=== PATIENT | male | born 1995 | race Caucasian/White ===

== ENCOUNTER 2022-10-10 10:44 | Emergency (ER) | payer OTHER, SELFPAY ==
--- NOTE | ~2022-10-10 | US_ITS ---
EXAMINATION: US ABDOMEN LIMITED CLINICAL INFORMATION: Right upper quadrant pain. COMPARISON: None TECHNIQUE: Real-time imaging of the right upper quadrant abdominal viscera. FINDINGS: PANCREAS: Pancreatic body and tail normal. Head obscured by bowel gas. LIVER: Liver is slightly echogenic but no focal masses or intrahepatic biliary dilatation. Liver size normal. GALLBLADDER: The gallbladder is slightly thick walled, there is a tiny 2 mm polyp present. No discrete mobile gallstones are pericholecystic fluid. COMMON BILE DUCT: Normal in caliber measuring 0.6 cm in diameter. RIGHT KIDNEY: Normal. No hydronephrosis. No renal calculi or focal parenchymal lesions. The kidney measures 10.0 cm in maximum dimension. FREE FLUID: None. US/US abdomen limited IMPRESSION: Echogenic liver. Tiny gallbladder polyp. No evidence for gallstones or sonographic evidence for cholecystitis.
--- NOTE | 2022-10-10 11:27 | ED.ABDPAIN ---
HPI - Abdominal Pain General Chief Complaint: Abdominal Pain <Tonia Vides MD - Last Filed: 10/10/22 11:30> Stated Complaint: Stomach Pain <Tonia Vides MD - Last Filed: 10/10/22 11:30> Time Seen by Provider: 10/10/22 14:43 <Tonia Vides MD - Last Filed: 10/10/22 11:30> Source: patient <RUTH ANN Carrero - Last Filed: 10/10/22 15:29> Mode of arrival: ambulatory <RUTH ANN Carrero - Last Filed: 10/10/22 15:29> Limitations: no limitations <RUTH ANN Carrero Last Filed: 10/10/22 15:29> History of Present Illness HPI narrative: 27 yo male presents to the ER with Epigastric and right upper quadrant pain for last 5 days. He reports the pain started after eating cheese. He is lactose intolerant. He usually doesn't eat dairy. he states that the pain has been constant is located in the epigastric area. He has had some nausea but no vomiting. He is stooling and urinating normally. He reports the pain is like an ache, sometimes radiates to the right upper quadrant. He does not notice any worsening with food intake. He likes to eat spicy foods. He denies any fever or chills. <RUTH ANN Carrero - Last Filed: 10/10/22 15:29> MD elicited complaint: abdominal pain <RUTH ANN Carrero Last Filed: 10/10/22 15:29> Pertinent past history: none <RUTH ANN Carrero Last Filed: 10/10/22 15:29> Onset (ago): day(s) (5) <RUTH ANN Carrero Last Filed: 10/10/22 15:29> Pain Consistency: constant <RUTH ANN Carrero Last Filed: 10/10/22 15:29> Location: epigastric <RUTH ANN Carrero Last Filed: 10/10/22 15:29> Severity: moderate <RUTH ANN Carrero Last Filed: 10/10/22 15:29> Quality: aching <RUTH ANN Carrero Last Filed: 10/10/22 15:29> Radiation: RUQ <RUTH ANN Carrero - Last Filed: 10/10/22 15:29> Migration to: no migration <RUTH ANN Carrero - Last Filed: 10/10/22 15:29> Exacerbating factors: nothing <RUTH ANN Carrero - Last Filed: 10/10/22 15:29> Relieving factors: nothing <RUTH ANN Carrero - Last Filed: 10/10/22 15:29> Associated symptoms: nausea <RUTH ANN Carrero - Last Filed: 10/10/22 15:29> Related Data Home Medications: Previous Rx's Medication Instructions Recorded ondansetron 4 mg disintegrating 4 mg PO Q8H PRN nausea and 10/10/22 tablet vomiting #10 tabs pantoprazole 40 mg tablet,delayed 40 mg PO DAILY #30 tabs 10/10/22 release (Protonix) <Tonia Vides MD - Last Filed: 10/10/22 11:30> Allergies/Adverse Reactions: Allergies Allergy/AdvReac Type Severity Reaction Status Date / Time No Known Allergies Allergy Unverified 07/21/20 16:39 <Tonia Vides MD - Last Filed: 10/10/22 11:30> Review of Systems Review of Systems Constitutional: No Fever, No Chills ENT/Mouth: No sore throat, No Rhinorrhea, No Swallowing Difficulty Cardiovascular: No Chest Pain, No SOB Respiratory: No Cough, No Sputum, No Wheezing, No dyspnea Gastrointestinal: + Nausea, No Vomiting, No Diarrhea, +abdominal Pain, No Hematochezia, No Melena Genitourinary: No Dysuria, No Urinary Frequency, No Hematuria Musculoskeletal: No joint pain, No Myalgias Skin: No Skin Lesions, No rash Neuro: No Weakness, No Dizziness, No Headache Psych: No Anxiety/Panic, No Depression Heme/Lymph: No Bruising, No Lymphadenopathy <RUTH ANN Carrero - Last Filed: 10/10/22 15:29> [facility] Social History Social History: Social History Advance Directives: No Advance Directives Information Provided: No <Tonia Vides MD - Last Filed: 10/10/22 11:30> Physical Exam ED Vital Signs: Vital Signs - 24 hr 12/07/22 11:29 Temperature 98.3 F Pulse Rate 94 Respiratory Rate 18 Blood Pressure 144/84 H Pulse Oximetry 97 Oxygen Delivery Method Room Air BMI result Body Mass Index 31.6 <Tonia Vides MD - Last Filed: 10/10/22 11:30> Vital Signs - 24 hr 10/10/22 11:29 Temperature 98.3 F Pulse Rate 94 Respiratory Rate 18 Blood Pressure 144/84 H Pulse Oximetry 97 Oxygen Delivery Method Room Air BMI result Body Mass Index 31.6 <RUTH ANN Carrero - Last Filed: 10/10/22 15:29> Appearance: Alert. Oriented X3. No acute distress. Eyes: Pupils equal, round and reactive to light. ENT: Pharynx normal. Neck: Normal inspection. Neck supple. CVS: Normal heart rate and rhythm. Pulses normal. Respiratory: No respiratory distress. Breath sounds normal. Abdomen: Soft with epigastric tenderness, minimal RUQ tenderness without rebound or guarding +BS x4 Skin: Skin warm and dry. Normal skin color. Normal skin turgor. No rashes. Extremities: No lower extremity edema. Neuro: Oriented X 3. Grossly normal, nonfocal <RUTH ANN Carrero - Last Filed: 10/10/22 15:29> Course Course Course Narrative: RME evaluated patient as part of advanced triage epigastric pain ongoing for about a week. Positive nausea no vomiting. No diarrhea. Not affected by position not affected by food. Patient from home. 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 No coughing or congestion or upper respiratory symptoms. No diaphoresis. Not on any medication. No NSAID use. Labs ordered. Ultrasound of the right upper quadrant ordered. On exam patient's abdominal pain is mostly in the epigastric right upper quadrant. No right lower quadrant pain elicited on palpation. <Tonia Vides MD - Last Filed: 10/10/22 11:30> Reevaluation(s) Reevaluation #1: 27 yo male presenting with epigastric/RUQ pain x5 days. Exam with mild epigastric and RUQ tenderness. Abd soft. VSS and labs are unremarkable. US showing no gallstones or cholecystitis. Most likely gastritis. Will treat w/ PPI and dietary modifications. Will refer to GI if symptoms persist. Stable for d/c home. Patient agrees with plan. <RUTH ANN Carrero - Last Filed: 10/10/22 15:29> Medications Administered Discontinued Medications Generic Name Dose Route Start Last Admin Trade Name Freq PRN Reason Stop Dose Admin Al Hydroxide/Mg Hydroxide 30 ml 10/10/22 11:26 10/10/22 14:46 Magnesium Hydrox/Alum Hydrox 30 Ml Oral.Susp PO 10/10/22 11:27 30 ml ONCE ONE Administration Ondansetron HCl 4 mg 10/10/22 11:26 10/10/22 14:46 Ondansetron Odt 4 Mg Tab.Rapdis TRANSLINGU 10/10/22 11:27 4 mg ONCE ONE Administration <Tonia Vides MD - Last Filed: 10/10/22 11:30> Medications Administered Discontinued Medications Generic Name Dose Route Start Last Admin Trade Name Freq PRN Reason Stop Dose Admin Al Hydroxide/Mg Hydroxide 30 ml 10/10/22 11:26 10/10/22 14:46 Magnesium Hydrox/Alum Hydrox 30 Ml Oral.Susp PO 10/10/22 11:27 30 ml ONCE ONE Administration Ondansetron HCl 4 mg 10/10/22 11:26 10/10/22 14:46 Ondansetron Odt 4 Mg Tab.Rapdis TRANSLINGU 10/10/22 11:27 4 mg ONCE ONE Administration <RUTH ANN Carrero - Last Filed: 10/10/22 15:29> Discharge Plan Discharge Clinical Impression: Gastritis <Tonia Vides MD - Last Filed: 10/10/22 11:30> Patient Disposition: Home, Self-Care <Tonia Vides MD - Last Filed: 10/10/22 11:30> Instructions: Gastritis (ED), Diet for Stomach Ulcers and Gastritis (ED) <Tonia Vides MD - Last Filed: 10/10/22 11:30> Additional Instructions: Your lab workup today was unremarkable. Your ultrasound did not show any gallstones or gallbladder infection. Your pain is most likely due to gastritis which is and irritation and inflammation of your stomach lining. Start taking the prescribed medication as directed for this. Stick to a bland diet. Avoid foods high in acid, avoid alcohol and NSAID medications like Aleve, Motrin, Advil or ibuprofen. Follow up with your doctor as needed. Follow up with GI doctor if you symptoms persist despite dietary modifications and medication. If you develop new or worsening symptoms call 911 or come back to the ER for further evaluation. <Tonia Vides MD - Last Filed: 10/10/22 11:30> Prescriptions: New pantoprazole [Protonix] 40 mg tablet,delayed release (DR/EC) 40 mg PO DAILY Qty: 30 0RF ondansetron 4 mg tablet,disintegrating 4 mg PO Q8H PRN (Reason: nausea and vomiting) Qty: 10 0RF <Tonia Vides MD - Last Filed: 10/10/22 11:30> Referrals: [facility] [Provider Group] <Tonia Vides MD - Last Filed: 10/10/22 11:30> Stand Alone Forms: Work/School Release <Tonia Vides MD - Last Filed: 10/10/22 11:30> Discharge Date/Time: 10/10/22 15:26 <Tonia Vidse MD - Last Filed: 10/10/22 11:30>
[2022-10-10 11:29] VITALS: BP 144/84; PULSE 94; RESP 18; TEMP 36.8; O2SAT 97; BMI 31.6
[2022-10-10 11:39] LABS: MANUAL DIFF FLAG NO
[2022-10-10 11:42] LABS: Basophils Percent Auto 0.5 % (0-2); Eosinophils Absolute Auto 0.1 X10*3/uL (0.0-0.4); Eosinophils Percent Auto 1.6 % (0-4); Hematocrit 45.1 % (42.0-52.0); Hemoglobin 15.7 g/dl (14.0-18.0); Imm Gran Abs Auto 0.01 X10*3/uL (0.00-0.03); Imm Gran Pct Auto 0.1 % (0.0-0.4); Lymphocytes Absolute Auto 3.1 X10*3/uL (1.2-4.9); Lymphocytes Percent Auto 35.9 % (20-40); Mean Corpuscular HGB Conc 34.8 g/dl (31.0-36.0); Mean Corpuscular Hemoglobin 28.8 pg (27.0-33.0); Mean Corpuscular Volume 82.8 fL (80.0-98.0); Mean Platelet Volume 10.7 fL (9.4-12.4); Monocytes Absolute Auto 0.7 X10*3/uL (0.1-1.2); Monocytes Percent Auto 7.9 % (2-11); Neutrophils Absolute Auto 4.7 x10*3/uL (2.0-8.3); Platelet Count 295 X10*3/uL (160-400); Red Blood Count 5.45 X10*6/uL (4.60-5.80); Red Cell Distribution Width 12.3 % (11.0-16.0); White Blood Count 8.7 X10*3/uL (4.8-10.8)
[2022-10-10 11:57] LABS: Lipase 25 U/L (8-78)
[2022-10-10 12:00] LABS: Alanine Aminotransferase 22 U/L (0-40); Albumin Level 4.6 g/dL (3.5-5.0); Alkaline Phosphatase 62 U/L (39-117); Anion Gap 10 (12-20); Aspartate Amino Transferase 19 U/L (5-37); Bilirubin Total 0.5 mg/dL (0.0-1.0); Blood Urea Nitrogen 10 mg/dL (9-16); Calcium 9.9 mg/dL (8.4-10.2); Carbon Dioxide 27 mmol/L (22-29); Chloride 108 mmol/L (96-108); Estimated Glomerular Filt Rate > 60; Glucose Random 106 mg/dL (60-115); Magnesium 2.1 mg/dL (1.6-2.6); Potassium 4.4 mmol/L (3.3-5.1); Sodium 141 mmol/L (135-145); Total Protein 7.5 g/dL (6.5-8.0)
[2022-10-10 12:30] LABS: Influenza A PCR NEGATIVE (Negative); Influenza B PCR NEGATIVE (Negative); Resp Syncy Virus RNA Qual PCR NEGATIVE (Negative); SARS COV2 PCR INHOUSE NEGATIVE (Negative)
[2022-10-10 14:28] LABS: Appearance Urine Clear; Color Urine Yellow; Glucose Urine UA Negative (Negative); Leukocyte Esterase Urine Negative (Negative); Nitrite Urine Negative (Negative); PH 7.5 (5.0-9.0); Urine Blood Negative (Negative); Urine Ketones Negative (Negative); Urine Protein Negative (Neg-Trace)
[2022-10-10] MEDS: Magnesium Hydrox/Alum Hydrox 30 ML ORAL.SUSP PO (14:46)
[2022-10-10] MEDS: Ondansetron ODT 4 MG TAB.RAPDIS TRANSLINGU (14:46)
== END 2022-10-10 15:26 | disposition home or self-care (01) ==
PROVIDERS: Physician Assistant Medical; Emergency Provider Emergency Medicine Emergency Medical Services
DX: K29.70 Gastritis, unspecified, without bleeding (principal); R10.31 Right lower quadrant pain; Z79.899 Other long term (current) drug therapy; Z20.822 Contact with and (suspected) exposure to COVID-19
CPT/HCPCS: 0241U; 36415; 76705; 80053; 81003; 83690; 83735; 85025; 99283; 99284

== ENCOUNTER 2022-10-13 05:02 | Emergency (ER) | payer OTHER, SELFPAY ==
--- NOTE | ~2022-10-13 | CT_ITS ---
EXAMINATION: CT ABDOMEN AND PELVIS WITH CONTRAST CLINICAL INFORMATION: Right lower quadrant pain COMPARISON: Previous limited abdominal ultrasound 10/10/2022 TECHNIQUE: Multidetector volumetric images were obtained from the superior aspect of the liver through the pubic symphysis following administration 85 mL of Omnipaque 350 intravenous contrast. Sagittal and coronal reformatted images were obtained on the technologist's workstation. Oral contrast: Yes This CT examination was performed using dose optimization techniques as appropriate, variously including the following: *Automated exposure control *Adjustment of mA and/or kV according to patient size (this includes techniques or standardized protocols for targeted exams where dose is matched to indication/reason for exam; i.e. extremities or head) *Use of iterative reconstruction technique DLP: 641 mGy-cm FINDINGS: LUNG BASES: The visualized lung bases are unremarkable. LIVER, GALLBLADDER, AND BILIARY TREE: The liver is normal in size, shape, and attenuation. No focal hepatic lesion or biliary ductal dilatation is present. The gallbladder is unremarkable with no evidence of radiopaque gallstones, gallbladder wall thickening, or obvious pericholecystic inflammatory changes. PANCREAS: Unremarkable. SPLEEN: Unremarkable. ADRENAL GLANDS: Unremarkable. KIDNEYS AND URETERS: The kidneys are normal in size, shape, and attenuation. There are small bilateral renal stones measuring 2 mm in the right. Pole and 3 mm in the left lower pole. No hydronephrosis, hydroureter. BLADDER: Unremarkable. GASTROINTESTINAL TRACT: Stool throughout the colon questionable for constipation. The small and large bowel are otherwise unremarkable. The appendix is unremarkable. ABDOMINAL WALL: No significant hernia is appreciated. LYMPH NODES: Normal. VASCULAR: Unremarkable. PELVIC VISCERA: Unremarkable. OSSEOUS STRUCTURES: Unremarkable. CT/CT abdomen pelvis w IV con IMPRESSION: Small bilateral renal stones. Question mild constipation. Fleischner guidelines were followed.
[2022-10-13 05:07] VITALS: BP 146/83; PULSE 72; RESP 18; TEMP 36.4; O2SAT 100; BMI 31.6
--- NOTE | 2022-10-13 05:11 | ED.ABDPAIN ---
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 He notes since then he has had R sided abdominal pain. He denies v/d. He has had decreased appetite. He was seen on 10/10 normal labs and US of RUQ. Tonight at work he is very uncomfortable and the pain is more in RLQ. He has not had abdominal surgery before. MD elicited complaint: abdominal pain Pertinent past history: none Onset (ago): week(s) (1) Pain Consistency: constant Location: RLQ and R flank Severity: moderate Quality: stabbing Radiation: none Migration to: no migration Exacerbating factors: eating and movement Relieving factors: nothing Associated symptoms: nausea Related Data Previous Rx's Medication Instructions Recorded ondansetron 4 mg disintegrating 4 mg PO Q8H PRN nausea and 10/10/22 tablet vomiting #10 tabs pantoprazole 40 mg tablet,delayed 40 mg PO DAILY #30 tabs 10/10/22 release (Protonix) Allergies Allergy/AdvReac Type Severity Reaction Status Date / Time No Known Allergies Allergy Verified 10/13/22 05:11 Review of Systems Review of Systems Constitutional : No Weight loss, No Fever, No Chills ENT/Mouth : No sore throat, No Rhinorrhea Eyes: No Swelling, No Redness Cardiovascular : No Chest Pain, No SOB, NoEdema Respiratory : No Cough, No Sputum, No Wheezing Gastrointestinal : Positive Nausea, no Vomiting, no Diarrhea, positive abdominal Pain, No Hematochezia, No Melena Genitourinary : No Dysuria, No Urinary Frequency, No Hematuria, No Urgency Musculoskeletal : No joint pain, No Myalgias, No Joint Swelling Skin : No Skin Lesions, No rash Neuro : No Weakness, No Numbness, No Dizziness, No Headache Psych : No Anxiety/Panic, No Depression Heme/Lymph: No Bruising, No Lymphadenopathy Endocrine : No Polyuria, No Polydipsia All other systems reviewed and are negative. [facility] Past Medical History Attestation statement: The following information was validated with the patient. Medical History Lactose intolerance Social History Social History (Updated 10/13/22 @ 05:14 by Azalia Appiah DO) Patient Tobacco Use Status: Never used Tobacco Advance Directives: No Advance Directives Information Provided: No Physical Exam ED Vital Signs: Vital Signs - 24 hr 10/13/22 05:07 Temperature 97.6 F Pulse Rate 72 Respiratory Rate 18 Blood Pressure 146/83 H Pulse Oximetry 100 Oxygen Delivery Method Room Air BMI result Body Mass Index 31.6 Appearance: Alert. Oriented X3. No acute distress. Eyes: Pupils equal, round and reactive to light. ENT: Pharynx normal. Neck: Normal inspection. Neck supple. CVS: Normal heart rate and rhythm. Pulses normal. Respiratory: No respiratory distress. Breath sounds normal. Abdomen: Soft and moderate RLQ ttp no rebound or guarding Skin: Skin warm and dry. Normal skin color. Normal skin turgor. Extremities: No lower extremity edema. No calf ttp Neuro: Oriented X 3. No motor deficit. No sensory deficit. Course Course Course Narrative: signed out to Dr. Walls pending CT scan Medical Decision Making Medical Decision Making MDM Narrative: 27 yo male lactose intolerant here with abdominal pain seen recently with negative labs and US of RUQ but today his pain is more localized to RLQ he does not have peritoneal signs on exam. Will need labs, IVF and CT Scan to evaluate RLQ for appendicitis - dispo per results and findings. Differential Diagnoses: Differential diagnosis (appendicitis, gastritis, IBS, constipation, renal colic) Lab Attestation: I reviewed the patient's lab results. Medications Administered Discontinued Medications Generic Name Dose Route Start Last Admin Trade Name Freq PRN Reason Stop Dose Admin Lactated Ringer's 1,000 mls @ 999 mls/hr 10/13/22 05:15 10/13/22 05:23 Lr IV 10/13/22 06:15 999 mls/hr .Q1H1M YAHAIRA Administration Ketorolac Tromethamine 15 mg 10/13/22 05:17 10/13/22 05:26 Ketorolac Tromethamine 15 Mg/Ml Vial IVPUSH 10/13/22 05:18 15 mg ONCE ONE Administration Discharge Plan Discharge Clinical Impression: Abdominal pain Qualifiers: Abdominal location: right lower quadrant Qualified Code(s): R10.31 - Right lower quadrant pain Patient Disposition: Still a Patient Prescriptions: No Action pantoprazole [Protonix] 40 mg tablet,delayed release (DR/EC) 40 mg PO DAILY Qty: 30 0RF ondansetron 4 mg tablet,disintegrating 4 mg PO Q8H PRN (Reason: nausea and vomiting) Qty: 10 0RF
[2022-10-13] MEDS: Lactated Ringers 1,000 ML 999 ML IV (05:23)
[2022-10-13] MEDS: Ketorolac Tromethamine 15 MG/ML VIAL IVPUSH (05:26)
[2022-10-13 05:31] LABS: Basophils Percent Auto 0.4 % (0-2); Eosinophils Absolute Auto 0.1 X10*3/uL (0.0-0.4); Eosinophils Percent Auto 1.5 % (0-4); Hemoglobin 15.9 g/dl (14.0-18.0); Imm Gran Abs Auto 0.02 X10*3/uL (0.00-0.03); Imm Gran Pct Auto 0.2 % (0.0-0.4); Lymphocytes Absolute Auto 3.4 X10*3/uL (1.2-4.9); Lymphocytes Percent Auto 42.5 % (20-40); MANUAL DIFF FLAG NO; Mean Corpuscular HGB Conc 36.1 g/dl (31.0-36.0); Mean Corpuscular Hemoglobin 29.8 pg (27.0-33.0); Mean Corpuscular Volume 82.6 fL (80.0-98.0); Mean Platelet Volume 10.6 fL (9.4-12.4); Monocytes Absolute Auto 0.5 X10*3/uL (0.1-1.2); Monocytes Percent Auto 6.6 % (2-11); Neutrophils Percent Auto 48.8 % (45-73); Platelet Count 281 X10*3/uL (160-400); Red Blood Count 5.33 X10*6/uL (4.60-5.80); Red Cell Distribution Width 12.3 % (11.0-16.0); White Blood Count 8.1 X10*3/uL (4.8-10.8)
[2022-10-13 06:00] VITALS: BP 137/75; PULSE 72; TEMP 36.6; O2SAT 97
[2022-10-13 06:01] LABS: Alanine Aminotransferase 23 U/L (0-40); Albumin Level 4.7 g/dL (3.5-5.0); Alkaline Phosphatase 52 U/L (39-117); Anion Gap 16 (12-20); Aspartate Amino Transferase 23 U/L (5-37); Bilirubin Direct 0.2 mg/dL (0.0-0.5); Bilirubin Total 0.6 mg/dL (0.0-1.0); Blood Urea Nitrogen 10 mg/dL (9-16); Carbon Dioxide 26 mmol/L (22-29); Chloride 105 mmol/L (96-108); Creatinine Clr Calc Pharmacy 102.7; Estimated Glomerular Filt Rate > 60; Glucose Random 105 mg/dL (60-115); Lipase 29 U/L (8-78); Magnesium 2.1 mg/dL (1.6-2.6); Potassium 4.5 mmol/L (3.3-5.1); Sodium 142 mmol/L (135-145); Total Protein 7.7 g/dL (6.5-8.0)
[2022-10-13] MEDS: iohexoL 350 MG/ML 100 ML INFUS..BTL 85 ML IV (06:36)
[2022-10-13] MEDS: Morphine Sulfate 4 MG/ML CARTRIDGE IVPUSH (06:47)
[2022-10-13] MEDS: ondansetron HCL 4 MG/2 ML VIAL IVPUSH (06:47)
[2022-10-13 07:38] VITALS: BP 123/70; PULSE 68; RESP 12; TEMP 36.4
== END 2022-10-13 08:24 | disposition home or self-care (01) ==
PROVIDERS: Emergency Medicine; Emergency Provider Emergency Medicine
DX: R10.31 Right lower quadrant pain (principal); E73.9 Lactose intolerance, unspecified
CPT/HCPCS: 36415; 74177; 80048; 80076; 83690; 83735; 85025; 96361; 96374; 96375; 99284; 99285; J1885; J2270; J2405; Q9967

== ENCOUNTER → 2022-11-02 12:09 | Outpatient (BNVA) | payer OTHER, SELFPAY | PROVIDERS: Visit Provider Nurse Practitioner | DX: K52.9 Noninfective gastroenteritis and colitis, unspecified (principal); R11.2 Nausea with vomiting, unspecified | CPT/HCPCS: 99202 ==

== ENCOUNTER → 2022-12-06 08:24 | Outpatient (BNVA) | payer OTHER, SELFPAY | PROVIDERS: Visit Provider Nurse Practitioner | DX: K52.9 Noninfective gastroenteritis and colitis, unspecified (principal); R11.2 Nausea with vomiting, unspecified | CPT/HCPCS: 99212 ==

== ENCOUNTER 2023-01-19 14:49 | Emergency (ER) | payer OTHER, SELFPAY ==
--- NOTE | 2023-01-19 | ECG_ITS ---
Test Reason : sob Blood Pressure : / mmHG Vent. Rate : 157 BPM Atrial Rate : 157 BPM P-R Int : 086 ms QRS Dur : 094 ms QT Int : 266 ms P-R-T Axes : 028 117 -15 degrees QTc Int : 430 ms Sinus tachycardia with short [place] Right axis deviation T wave abnormality, consider inferior ischemia Abnormal ECG No previous ECGs available Referred By: Generic ED Physician Electronically Signed By:Rocco Potts
--- NOTE | ~2023-01-19 | XR_ITS ---
EXAMINATION: XR ANKLE, RIGHT CLINICAL INFORMATION: Right ankle pain. COMPARISON: None available. TECHNIQUE: AP, lateral, and mortise views of the right ankle. An indicator arrow points to the lateral malleolus. FINDINGS: The bones and soft tissues are normal. No fracture. Alignment is anatomic. Joint spaces are maintained. Mild soft tissue swelling is seen laterally. XR/XR ankle RT 2V IMPRESSION: Mild soft tissue swelling laterally without acute underlying osseous abnormality.
[2023-01-19 14:57] VITALS: BP 154/91; PULSE 144; RESP 23; TEMP 37.1; O2SAT 99; BMI 30.7
--- NOTE | 2023-01-19 14:57 | ED_ITS ---
HPI - General Adult General Chief complaint: Dyspnea Stated complaint: Asthma, unable to breathe Time Seen by Provider: 01/19/23 14:57 Source: patient Mode of arrival: ambulatory Limitations: no limitations History of Present Illness HPI narrative: Patient is a 27 year old assigned male at with no reported medical history presenting to the emergency department today with an episode of shortness of breath. 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 Patient states that he became short of breath and twisted his right ankle. Patient denies any loss of consciousness or head injury. Patient denies any dizziness, lightheadedness, abdominal pain, nausea, vomiting, fever, chills, blurry vision, double vision, loss of vision, chest pain, back pain, night sweats, pain with urination, increased urinary frequency, increased urinary urgency, blood in his urine or stool, syncope or a near syncopal episode, bowel incontinence, bladder incontinence, bowel retention, bladder retention, or any other complaints at this time. Onset (ago): minute(s) Severity: mild Severity scale (1-10): 2 Relieving factors: none Exacerbating factors: none Associated symptoms: denies other symptoms Treatments prior to arrival: none Related Data Previous Rx's Medication Instructions Recorded ondansetron 4 mg disintegrating 4 mg PO Q8H PRN nausea and 11/02/22 tablet vomiting #10 tabs pantoprazole 40 mg tablet,delayed 40 mg PO DAILY #30 tabs 11/02/22 release (Protonix) albuterol sulfate 90 mcg/actuation 1 inh inhalation QID PRN shortness 01/19/23 aerosol inhaler of breath or wheezing #8.5 grams Allergies Allergy/AdvReac Type Severity Reaction Status Date / Time No Known Allergies Allergy Verified 12/06/22 08:33 Review of Systems Constitutional: Constitutional: Reports no additional constitutional complaints, Denies chills, Denies fever(s) and Denies night sweats Eyes: Eyes: Reports no additional eye complaints, Denies blurry vision, Denies change in vision, Denies diplopia, Denies eye discharge, Denies loss of vision and Denies eye pain ENT: Denies dizziness Cardiovascular: Cardiovascular: Reports no additional cardiovascular complaints, Denies chest pain, Denies lightheadedness, Denies Loss of Consciousness and Reports dyspnea Respiratory: Respiratory: Reports no additional respiratory complaints and Reports dyspnea Gastrointestinal: Gastrointestinal: Reports no additional gastrointestinal complaints, Denies abdominal pain, Denies melena, Denies hematochezia, Denies change in bowel habits and Denies change in stool character Genitourinary: Genitourinary: Reports no additional male genitourinary complaints, Denies hematuria, Denies oliguria, Denies difficulty urinating, Denies dysuria, Denies urinary frequency, Denies urinary hesitancy, Denies urinary incontinence and Denies urinary urgency Musculoskeletal: Musculoskeletal: Reports no additional musculoskeletal complaints, Denies numbness and Denies tingling Comments: right ankle pain Neurologic: Denies dizziness, Denies loss of vision, Denies numbness and Denies tingling Psychiatric: Psychiatric: Reports no additional psychiatric complaints Endocrine: Endocrine: Reports no additional endocrine complaints Hematologic/Lymphatic: Hematologic/Lymphatic: Reports no additional hematologic/lymphatic complaints Allergic/Immunologic: Allergic/Immunologic: Reports no additional allergic /immunologic complaints PMFSH Past Medical History Attestation statement: The following information was validated with the patient. Source: old records reviewed and nursing notes reviewed Medical History Lactose intolerance Social History Social History Alcohol intake: current Alcohol intake frequency: a few times a month Patient Tobacco Use Status: Never used Tobacco Smoked in Last 30 Days: Yes Use of substances other than those prescribed or required for medical reasons: No Advance Directives: No Advance Directives Information Provided: Yes Physical Exam ED Vital Signs: Vital Signs - 24 hr 01/19/23 14:57 01/19/23 15:32 01/19/23 16:07 Temperature 98.8 F Pulse Rate 144 H 103 H 103 H Respiratory Rate 23 H 20 20 Blood Pressure 154/91 H 142/90 H 140/80 H Pulse Oximetry 99 99 96 Oxygen Delivery Method Room Air Room Air Room Air BMI result Body Mass Index 30.7 Const General: cooperative, no acute distress, alert and awake Nutritional Appearance: well nourished Orientation/consciousness: patient oriented x3 Limitations: no limitations HENMT Head: Yes normal to inspection and Yes atraumatic Ears: hearing grossly normal bilaterally and external ears normal General nose exam: Normal external nose present, no nasal discharge noted and no epistaxis Face and sinus: Yes normal facial exam, No abrasion and No laceration Mouth: Normal oral and palatal mucosa present, no drooling and no muffled voice Eyes General: appearance normal, both eyes and all related structures Periorbital: periorbital findings normal Eyelids: Yes eyelids normal Conjunctivae: conjunctivae normal Pupils: Equal, round and reactive pupils present EOM: EOMs intact bilaterally Neck Neck: Yes normal visual inspection, Yes full ROM and Yes no lymphadenopathy Chest Chest palpation & inspection: normal inspection of the chest Resp Effort & Inspection: normal respiratory effort and able to speak in complete sentences Auscultation: wheezes throughout Cardio Rate: tachycardic Rhythm: regular rhythm GI Inspection: Yes normal to inspection Neuro General: patient oriented x3 and moves all extremities Cranial nerves: Yes Equal, round and reactive pupils present Cognition (Neuro): normal cognition Motor exam (neuro): 5/5 motor strength present throughout Sensory Exam: Normal double simultaneous stimulation for sensation Coordination: [id number] test normal Extrem General: Yes normal to inspection, Yes full ROM and Yes capillary refill normal Psych Appearance: grossly normal Mental Status: mental status grossly normal Affect: normal affect Attitude: cooperative Thought process: Normal thought process present Thought content: Normal thought content present Insight: Good insight present (Psych) Medications Administered Discontinued Medications Generic Name Dose Route Start Last Admin Trade Name Freq PRN Reason Stop Dose Admin Albuterol Sulfate 10 mg 01/19/23 14:57 01/19/23 15:08 Albuterol Sulfate (0.083%) 2.5 Mg/3 Ml Vial.Neb INHALE 01/19/23 14:58 10 mg ONCE ONE Administration Methylprednisolone Sodium Succinate 60 mg 01/19/23 14:57 01/19/23 15:11 Methylprednisolone Sod Succ 125 Mg/2 Ml Vial IM 01/19/23 14:58 60 mg ONCE ONE Administration Procedures Orthopedic Splinting/Casting Injury #1: Side: right Lower Extremity Injury Location: ankle Lower Extremity Immobilizer: Wood wrap Medical Decision Making Medical Decision Making [facility] Narrative: Patient is a 27 year old assigned male at with no reported medical history presenting to the emergency department today with right ankle pain and shortness of breath. Patient's physical exam showed tachycardia and wheezing but was otherwise unremarkable. Patient's EKG showed sinus tachycardia. Patient's right ankle x-ray showed no acute anton process. I explained my physical exam findings as well as all test results to the patient. I answered all questions asked by the patient. Patient received a breathing treatment, IV solu-medrol and an his r ight ankle was wrapped with an wood wrap which he stated helped his symptoms significantly. I stressed the importance of the patient taking his medication as prescribed. I stressed the importance of the patient following up with his primary care provider. I stressed the importance of the patient returning to the emergency department immediately if his symptoms were to worsen or if he were to develop any dizziness, shortness of breath, difficulty breathing, chest pain, blurry vision, loss of vision, nausea, vomiting, abdominal pain, fever, chills, back pain, or any other complaints. Patient verbalized agreement and understanding with this treatment plan and discharge. Differential Diagnosis Differential Diagnoses: The differential diagnosis associated with the presentation includes exertional asthma, right ankle pain Independent Interpretation I performed an independent interpretation of an: EKG Interpretation: Vent. rate: 157BPM CT interval: 86ms QRS duration: 94ms QT/QTc-Baz: 266/430ms P-R-T axes: 28 117 -15 Sinus tachycardia with short CT Right axis deviation T wave abnormality, consider inferior ischemia Abnormal ECG Radiology Impression Radiologist Impression: My interpretation is in agreement with the radiologist's impression of this imaging study. EXAMINATION: XR ANKLE, RIGHT CLINICAL INFORMATION: Right ankle pain.? COMPARISON: None available.? TECHNIQUE: AP, lateral, and mortise views of the right ankle. An indicator arrow points to the lateral malleolus. FINDINGS: The bones and soft tissues are normal. No fracture. Alignment is anatomic. Joint spaces are maintained. Mild soft tissue swelling is seen laterally. XR/XR ankle RT 2V IMPRESSION: Mild soft tissue swelling laterally without acute underlying osseous abnormality. Dictated By: Jean-Paul Díaz MD Signed By: Electronically signed by Jean-Paul Díaz MD 01/19/23 4728 Discharge Plan Discharge Clinical Impression: Asthma, Ankle sprain Patient Disposition: Home, Self-Care Instructions: Asthma (ED), Ankle Sprain (ED) Additional Instructions: Follow up with your primary care provider. Return to the emergency department immediately if your symptoms worsen or if you develop any dizziness, shortness of breath, difficulty breathing, chest pain, blurry vision, loss of vision, nausea, vomiting, abdominal pain, fever, chills, back pain, or any other complaints. Prescriptions: New albuterol sulfate 90 mcg/actuation HFA aerosol inhaler 1 inh inhalation QID PRN (Reason: shortness of breath or wheezing) Qty: 8.5 0RF No Action pantoprazole [Protonix] 40 mg tablet,delayed release (DR/EC) 40 mg PO DAILY Qty: 30 6RF ondansetron 4 mg tablet,disintegrating 4 mg PO Q8H PRN (Reason: nausea and vomiting) Qty: 10 2RF Referrals: [facility] Family Medicine [Provider Group] (Call to establish and follow up with a primary care provider. If you already have a primary care provider, please follow up with them.) [facility] Primary Care, Se [Provider Group] (Call to establish and follow up with a primary care provider. If you already have a primary care provider, please follow up with them.) [facility] Primary Care,Archana [Provider Group] (Call to establish and follow up with a primary care provider. If you already have a primary care provider, please follow up with them.) Stand Alone Forms: Work/School Release Interventions: ED Discharge Assessment Last Done: 01/19/23 16:35 Discharge Date/Time: 01/19/23 16:43 Print Language: Burmese
[2023-01-19] MEDS: Albuterol Sulfate (0.083%) 2.5 MG/3 ML VIAL.NEB 10 MG INHALE (15:08)
[2023-01-19] MEDS: methylPREDNISolone Sod Succ 125 MG/2 ML VIAL 60 MG IM (15:11)
[2023-01-19 15:32] VITALS: BP 142/90; PULSE 103; RESP 20; O2SAT 99
[2023-01-19 16:07] VITALS: BP 140/80; PULSE 103; RESP 20; O2SAT 96
== END 2023-01-19 16:43 | disposition home or self-care (01) ==
PROVIDERS: Emergency Provider Emergency Medicine
DX: S93.401A Sprain of unspecified ligament of right ankle, initial encounter (principal); X50.1XXA Overexertion from prolonged static or awkward postures, initial encounter; J45.909 Unspecified asthma, uncomplicated; R06.02 Shortness of breath; R00.0 Tachycardia, unspecified; Y93.89 Activity, other specified; Y92.239 Unspecified place in hospital as the place of occurrence of the external cause; Y99.0 Civilian activity done for income or pay
CPT/HCPCS: 73600; 93005; 96372; 99284; J2930

== ENCOUNTER → 2023-02-08 07:37 | Outpatient (BNVA) | payer OTHER, SELFPAY | DX: Z13.89 Encounter for screening for other disorder (principal) | CPT/HCPCS: 99202 ==

== ENCOUNTER → 2023-02-21 08:00 | Outpatient (BNVA) | payer OTHER, SELFPAY | PROVIDERS: Visit Provider Internal Medicine | DX: Z13.89 Encounter for screening for other disorder (principal) | CPT/HCPCS: 99213 ==

== ENCOUNTER → 2023-03-11 07:39 | Outpatient (BNVA) | payer OTHER, SELFPAY | PROVIDERS: Visit Provider Internal Medicine | DX: Z13.89 Encounter for screening for other disorder (principal) | CPT/HCPCS: 99213 ==

== ENCOUNTER → 2023-03-19 07:58 | Outpatient (BNVA) | payer OTHER, SELFPAY | PROVIDERS: Visit Provider Internal Medicine | DX: Z13.89 Encounter for screening for other disorder (principal) | CPT/HCPCS: 99213 ==

== ENCOUNTER 2023-03-20 08:00 | Outpatient (RCR) | payer OTHER, SELFPAY ==
--- NOTE | 2023-02-21 11:28 | MHC.PT.EP ---
[facility] [place] Office [place] Office [place] Office [address] [phone] F: [phone] F: [phone] F: [phone] F: [phone] Physical Therapy Plan of Care Date of Evaluation: Date of Surgery: none Diagnosis: R ankle sprain Assessment: This is a 27 y/o male presenting to [facility] outpatient physical therapy from [facility] with a diagnosis of R ankle sprain. [place]: running to a code in the hospital, rolled his ankle inwards, stumbled, kept running. 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 He is also in the [employer]. Pt presenting with decreased R ankle ROM, impaired strength and proprioception of the right ankle joint, limited gastroc/soleus length, pain limiting function, tenderness to palpation around the lateral and slightly posterior aspects of the ankle, and altered gait pattern. Pt is an excellent candidate for skilled outpatient PT and will benefit from a plan of care 2-3x/week for 3-4 weeks. Of note, patient has a difficult schedule with vacation coming up and possible training for the . I recommend he be seen next week 3 visits to initiate a solid program to promote healing and reduced pain. Frequency and Duration: The patient will be seen 2-3x/week for 3-4 weeks Short Term Goals: 1. Reduce pain with weight bearing to less than 2/10 2. Demonstrate proper form and compliance with initial HEP Digital Marketing Assistant Goals: 1. Improve ROM of R ankle in all directions by at least 5 degrees (with the exception of plantarflexion) 2. Demonstrate ability to perform 20 calf raises on R side 3. Restore ankle strength to WNL all directions 4. Improve single leg balance time on R side to at least 15 seconds Treatment Plan: Modalities to reduce pain, spasms and effusion. Manual therapy to restore motion and function. Therapeutic exercise to improve strength and flexibility. Neuromuscular re-education for posture, balance, and proprioception specific to R ankle joint Therapeutic activities to return to functional activities of daily living. Electronically signed by: Angella Gardner DPT Please sign and return to therapist. Thank you for your referral.
--- NOTE | 2023-04-02 11:38 | MHC.PT.DC ---
[facility] [place] Office [place] Office [place] Office [address] [place] [address] [phone] F: [phone] F: [phone] F: [phone] F: [phone] Physical Therapy Discharge Report Diagnosis: R ankle sprain Date of Surgery: none Date of Evaluation: 02/21/23 Date of Discharge: 03/20/23 Treatments to Date: 8 Cancellations to Date: 0 No Shows to Date: 0 Discharge Status: Independent with HEP Patient Elected to Stop Patient has 1 month long [employer] training with unknown return date. Discharge Summary: Patient has improved slightly since his initial evaluation. Per [employer] documentation at last visit, Pt has made improvements in strength and ROM, decreased pain levels with activities and increased SLS time compared with eval. Has met all STGs at this time and is in progress on all LTGs. Pt is going on a month long [employer] training, unknown on return date so will be d/c'd at this time. Pt will follow up w/ WC on his return to determine if further PT will be necessary. We would be happy to continue his plan of care if needed when he returns. Electronically signed by: Angella Gardner DPT Please sign and return to therapist. Thank you for your referral.
== END 2023-04-02 11:43 | disposition other institution (70) ==
LOC: HO.PT 08:00
PROVIDERS: Visit Provider Internal Medicine
DX: S93.401D Sprain of unspecified ligament of right ankle, subsequent encounter (principal)
CPT/HCPCS: 97110; 97112; 97140; 97161

== ENCOUNTER 2023-04-30 07:20 | Outpatient (REF) | payer OTHER, SELFPAY ==
--- NOTE | ~2023-04-30 | MR_ITS ---
EXAMINATION: MR ANKLE, RIGHT CLINICAL INFORMATION: Right ankle sprain. Twisting injury. Persistent pain with inversion. COMPARISON: Right ankle radiographs dated 01/19/2023. TECHNIQUE: Multisequence MR imaging of the right ankle was obtained without contrast on a high field strength scanner. FINDINGS: BONE AND ARTICULAR CARTILAGE: No abnormal marrow signal. No acute fracture or dislocation. Ankle mortise is maintained. Intact articular cartilage. No talar osteochondral lesion. ACHILLES TENDON: Intact. OTHER TENDONS: Intact. LIGAMENTS: Attenuation with near complete absence of the anterior talofibular ligament, consistent with a complete versus near complete tear. Heterogeneity of the posterior talofibular and calcaneofibular ligaments as well as the deltoid ligament, consistent with remote sprain/partial tears. JOINT FLUID AND SOFT TISSUES: Small tibiotalar joint effusion. Synovial recess versus ganglion cyst along the lateral aspect of the calcaneocuboid joint measuring up to 1.0 cm in greatest dimension. PLANTAR FASCIA: Intact. SINUS TARSI AND TARSAL TUNNEL: Patent. MR/MR ankle RT wo con IMPRESSION: 1. Complete versus near complete tear of the anterior talofibular ligament. Remote sprain/partial tears of the posterior talofibular, calcaneofibular, and deltoid ligaments. 2. Small tibiotalar joint effusion. Synovial recess versus ganglion cyst along the lateral aspect of the calcaneocuboid joint measuring up to 1.0 cm. 3. No acute osseous abnormality. No talar osteochondral lesion.
== END 2023-04-30 07:21 | disposition home or self-care (01) ==
LOC: HO.MRI 07:20
PROVIDERS: Visit Provider Internal Medicine
DX: S93.401A Sprain of unspecified ligament of right ankle, initial encounter (principal); X58.XXXA Exposure to other specified factors, initial encounter; Y93.9 Activity, unspecified; Y92.9 Unspecified place or not applicable; Y99.9 Unspecified external cause status
CPT/HCPCS: 73721

== ENCOUNTER → 2023-05-09 08:09 | Outpatient (BNVA) | payer OTHER, SELFPAY | PROVIDERS: Visit Provider Internal Medicine | DX: Z13.89 Encounter for screening for other disorder (principal) | CPT/HCPCS: 99213 ==

== ENCOUNTER 2023-05-23 13:36 | Outpatient (AMB) | payer OTHER, SELFPAY ==
--- NOTE | 2023-05-23 13:59 | MHC.OFFVIS ---
Intake Vital Signs 05/23/23 14:04 Height 5 ft 5 in Weight 190 lb BMI 31.6 Intake Visit Reasons: New Pt - Right ankle sprain WC Intake Note: Teo is a 27 year old male who presents today as a new patient for a evaluation for his right ankle pain, DOI 01/19/23. 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 Patient states that he became short of breath and twisted his right ankle. He states having pain when putting a lot of weight on it and when walking long distances. Pain is on the lateral aspect of the ankle. Allergies No Known Allergies Allergy (Verified 05/23/23 14:02) HPI New Pt - Right ankle sprain WC HPI Details 27-year-old male who presents in the office today, as a new patient, for an evaluation of right ankle pain. The patient presented to the ED on 01/19/2023 status post running a call while at work when he had dyspnea and twisting his ankle. He states he has pain when bearing weight on the right lower extremity and ambulating long distances. He claims the pain is on the lateral aspect of the right ankle. Patient confirms participating in physical therapy, with no relief. 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 This is a work related injury. 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 Review of Systems Const All systems reviewed & are unremarkable except as noted in HPI and below Physical Exam Vital Signs: BMI result Body Mass Index 31.6 Const General: cooperative, healthy appearing, comfortable, no acute distress, well developed and alert Orientation/consciousness: patient oriented x3 HEENT Head: Yes normal to inspection, Yes normocephalic and Yes atraumatic Eyes General: appearance normal, both eyes and all related structures Resp Effort & Inspection: normal respiratory effort and able to speak in complete sentences Cardio Rate: regular rate Peripheral pulses: Peripheral pulses 2+ throughout GI Palpation (GI): Soft to palpation Skin Lesions: no lesions Rashes: no rashes Neuro General: patient oriented x3 Extrem Other: Right ankle: Normal to inspection. No ecchymosis, erythema, or edema. Patient is able to demonstrate dorsiflexion, plantar flexion, pronation and supination. Tenderness to palpation over the ATFL. Positive anterior drawer. Sensation intact. Pedal Pulse intact. Assessment & Plan Assessment & Plan (1) Tear of talofibular ligament: Comment: Complete versus near complete tear of the anterior talofibular ligament. Code(s): S93.499A - Sprain of other ligament of unspecified ankle, initial encounter Plan Mr. Marti is a 27-year-old male who presents in the office today, as a new patient, for an evaluation of right ankle pain. The patient presented to the ED on 01/19/2023 status post running a call while at work when he had dyspnea and twisting his ankle. He states he has pain when bearing weight on the right lower extremity and ambulating long distances. He claims the pain is on the lateral aspect of the right ankle. Patient confirms participating in physical therapy, with no relief. 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 This is a work related injury. Dr. Eckert was available to speak to see the patient with me while in the office today and a collaborative treatment plan was made. He will be referred stat to [facility] in [place] for further evaluation and to discuss the possibility of surgical intervention. I instructed the patient he will need to bring a copy of the disk and report for the MRI with him to his appointment. Follow up with our office will be PRN, or sooner if needed. MRI of the right ankle, obtained on 04/30/2023, revealed: 1. Complete versus near complete tear of the anterior talofibular ligament. Remote sprain/partial tears of the posterior talofibular, calcaneofibular, and deltoid ligaments. 2. Small tibiotalar joint effusion. Synovial recess versus ganglion cyst along the lateral aspect of the calcaneocuboid joint measuring up to 1.0 cm. 3. No acute osseous abnormality. No talar osteochondral lesion. Orders: Referrals Orthopedics Referral S93.499A - Sprain of other ligament of unspecified ankle, initial encounter Patient Instructions: Scribed for Skyla Millan PA-C by Faviola Rangel medical transcription editor, on 05/23/2023 at 1:42 pm, EST. Your attestation Coding Level of Care Code New Pt Level 4 (34120) Diagnoses Tear of talofibular ligament S93.499A
[2023-05-23 14:04] VITALS: BMI 31.6
== END 2023-05-23 15:02 | disposition home or self-care (01) ==
PROVIDERS: Visit Provider Physician Assistant
DX: S93.491A Sprain of other ligament of right ankle, initial encounter (principal)
CPT/HCPCS: 99204

== ENCOUNTER → 2023-05-23 13:36 | Outpatient (BNVA) | payer OTHER, SELFPAY | PROVIDERS: Visit Provider Physician Assistant | DX: S93.491A Sprain of other ligament of right ankle, initial encounter (principal); X50.1XXA Overexertion from prolonged static or awkward postures, initial encounter; Y93.02 Activity, running; Y92.538 Other ambulatory health services establishments as the place of occurrence of the external cause; Y99.0 Civilian activity done for income or pay | CPT/HCPCS: 99202 ==

== ENCOUNTER → 2024-01-16 15:29 | Outpatient (BNVA) | payer OTHER, SELFPAY | PROVIDERS: Visit Provider Physician Assistant Medical | DX: Z13.89 Encounter for screening for other disorder (principal) | CPT/HCPCS: 99213 ==

== ENCOUNTER → 2024-02-18 08:27 | Outpatient (BNVA) | payer OTHER, SELFPAY | PROVIDERS: Visit Provider Physician Assistant Medical | DX: Z13.89 Encounter for screening for other disorder (principal) ==

== ENCOUNTER → 2024-02-26 08:12 | Outpatient (BNVA) | payer OTHER, SELFPAY | PROVIDERS: Visit Provider Internal Medicine | DX: Z13.89 Encounter for screening for other disorder (principal) | CPT/HCPCS: 99213 ==

== ENCOUNTER → 2024-03-25 07:48 | Outpatient (BNVA) | payer OTHER, SELFPAY | PROVIDERS: Visit Provider Internal Medicine | DX: Z13.89 Encounter for screening for other disorder (principal) | CPT/HCPCS: 99213 ==

== ENCOUNTER 2024-04-03 08:00 | Outpatient (RCR) | payer OTHER, SELFPAY | END 2024-06-08 14:40 | disposition home or self-care (01) | LOC: HO.PT 08:00 | PROVIDERS: Visit Provider Physical Therapist | DX: Z98.890 Other specified postprocedural states (principal) | CPT/HCPCS: 97110; 97112; 97140; 97161; 97530 ==

== ENCOUNTER 2024-04-09 08:43 | Outpatient (REF) | payer OTHER, SELFPAY ==
--- NOTE | ~2024-04-09 | MR_ITS ---
EXAMINATION: MR ANKLE WITHOUT CONTRAST, RIGHT CLINICAL INFORMATION: Persistent pain. Status post ankle surgery COMPARISON: 04/30/2023 TECHNIQUE: MRI of the ankle was performed using routine sequences on a high-field scanner. FINDINGS: ACHILLES TENDON: Normal. OTHER TENDONS: Intact. LIGAMENTS: Status post anterior talofibular ligament reconstruction with ill-defined low signal intensity in the anterolateral gutter at the expected sites of reconstruction along with numerous small foci of micrometallic artifact, most consistent with postoperative change. No appreciable recurrent injuries, though sensitivity is limited by the extensive the low signal intensity scar tissue in this region. The calcaneofibular, posterior talofibular, and distal tibiofibular ligaments are intact. Deltoid and spring ligaments are normal. BONE AND ARTICULAR CARTILAGE: Talocrural joint appears relatively well-preserved. No appreciable osteochondral abnormalities. Subtalar and Chopart joints are unremarkable, as are the bones of the midfoot. JOINT FLUID AND SOFT TISSUES: No joint effusion. Subcutaneous soft tissues are normal. PLANTAR FASCIA: Normal. SINUS TARSI AND TARSAL TUNNEL: Normal. MR/MR ankle RT wo con IMPRESSION: Status post anterior talofibular ligament reconstruction. No appreciable recurrent tears, though sensitivity is limited by the extensive scar tissue in the anterolateral gutter.
== END 2024-04-09 08:44 | disposition home or self-care (01) ==
LOC: HO.MRI 08:43
PROVIDERS: Visit Provider Internal Medicine
DX: G89.28 Other chronic postprocedural pain (principal); Z98.890 Other specified postprocedural states
CPT/HCPCS: 73721

== ENCOUNTER → 2024-05-13 08:03 | Outpatient (BNVA) | payer OTHER, SELFPAY | PROVIDERS: Visit Provider Internal Medicine | DX: Z13.89 Encounter for screening for other disorder (principal) | CPT/HCPCS: 99213 ==

== ENCOUNTER → 2024-10-14 08:07 | Outpatient (BNVA) | payer OTHER, SELFPAY | PROVIDERS: Visit Provider Internal Medicine | DX: Z13.89 Encounter for screening for other disorder (principal) | CPT/HCPCS: 99203; 99213 ==

== ENCOUNTER → 2024-10-19 07:24 | Outpatient (BNVA) | payer OTHER, SELFPAY | PROVIDERS: Visit Provider Internal Medicine | DX: Z13.89 Encounter for screening for other disorder (principal) | CPT/HCPCS: 99213 ==

== ENCOUNTER 2024-12-07 01:36 | Emergency (ER) | payer OTHER, SELFPAY ==
--- NOTE | ~2024-12-07 | XR_ITS ---
CLINICAL HISTORY: SOB 2 views chest Comparison: None Findings: No consolidation or effusion. No acute fractures. Impression: 1. Heart size at the upper limits of normal without failure. This document has been electronically signed by: Orestes Umanzor MD on 12/07/2024 02:24:56
[2024-12-07 01:40] VITALS: BP 147/92; PULSE 101; RESP 18; TEMP 36.6; O2SAT 100; BMI 34.4
[2024-12-07] MEDS: Magnesium Sulfate/H2O 2 GM/50 ML PIGGYBACK IV (02:14)
[2024-12-07] MEDS: methylPREDNISolone Sod Succ 125 MG/2 ML VIAL 60 MG IVPUSH (02:14)
[2024-12-07 02:16] LABS: MANUAL DIFF FLAG NO
[2024-12-07 02:18] LABS: Basophils Percent Auto 0.4 % (0-2); Eosinophils Absolute Auto 0.2 X10*3/uL (0.0-0.4); Eosinophils Percent Auto 2.4 % (0-4); Hematocrit 43.3 % (42.0-52.0); Hemoglobin 15.3 g/dl (14.0-18.0); Imm Gran Abs Auto 0.03 X10*3/uL (0.00-0.03); Imm Gran Pct Auto 0.3 % (0.0-0.4); Lymphocytes Absolute Auto 2.2 X10*3/uL (1.2-4.9); Lymphocytes Percent Auto 24.3 % (20-40); Mean Corpuscular HGB Conc 35.3 g/dl (31.0-36.0); Mean Corpuscular Hemoglobin 28.9 pg (27.0-33.0); Mean Corpuscular Volume 81.7 fL (80.0-98.0); Mean Platelet Volume 10.6 fL (9.4-12.4); Monocytes Absolute Auto 0.9 X10*3/uL (0.1-1.2); Monocytes Percent Auto 10.2 % (2-11); Neutrophils Absolute Auto 5.7 x10*3/uL (2.0-8.3); Neutrophils Percent Auto 62.4 % (45-73); Platelet Count 229 X10*3/uL (160-400); Red Cell Distribution Width 12.6 % (11.0-16.0); White Blood Count 9.1 X10*3/uL (4.8-10.8)
[2024-12-07 02:31] LABS: Anion Gap 12 (12-20); Blood Urea Nitrogen 11 mg/dL (9-16); Calcium 9.9 mg/dL (8.4-10.2); Carbon Dioxide 28 mmol/L (22-29); Chloride 106 mmol/L (96-108); Creatinine Clr Calc Pharmacy 110.3; Estimated Glomerular Filt Rate > 60; Glucose Random 109 mg/dL (60-115); Potassium 4.2 mmol/L (3.3-5.1); Sodium 142 mmol/L (135-145)
[2024-12-07 02:34] VITALS: PULSE 100; RESP 18; O2SAT 100
[2024-12-07] MEDS: Albuterol/Iprat 2.5/0.5MG 3 ML AMPUL.NEB INHALE (02:34)
[2024-12-07 02:36] LABS: Influenza A PCR NEGATIVE (Negative); Influenza B PCR NEGATIVE (Negative); Resp Syncy Virus RNA Qual PCR NEGATIVE (Negative); SARS COV2 PCR INHOUSE NEGATIVE (Negative)
[2024-12-07 02:50] VITALS: PULSE 100; RESP 18; O2SAT 99
--- NOTE | 2024-12-07 02:50 | PC.NURSE ---
pt reports relief of symptoms and breathing s/p medications and duo neb tx.
--- NOTE | 2024-12-07 03:38 | ED.SOB ---
HPI - SOB/Dyspnea General Chief Complaint: Upper Respiratory Symptoms Stated Complaint: trouble breathing Time Seen by Provider: 12/07/24 03:36 Source: patient Mode of arrival: ambulatory Limitations: no limitations History of Present Illness ED Provider: Dr. Jorge L Becerril HPI Narrative: 29-year-old male with a history of reactive airway disease triggered by URI who presents emergency department for evaluation of shortness of breath x2 weeks. Patient states that he has had a nonproductive cough, rhinorrhea, shortness of breath and dyspnea on exertion. The patient states that his cough has become more frequent over the last several days. He states he has also had shortness of breath and dyspnea on exertion and he has been using his albuterol inhaler more frequently with the minimal effect. 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 Related Data Previous Rx's ?Medication ?Instructions ?Recorded albuterol sulfate 90 mcg/actuation 2 puff inhalation Q4-6H PRN 12/07/24 aerosol inhaler (Ventolin HFA) shortness of breath or wheezing #8.5 grams azithromycin 250 mg tablet See Rx Instructions PO .COMPLEX #6 12/07/24 (Zithromax Z-Isidro) tabs prednisone 20 mg tablet 60 mg (3 x 20 mg) PO DAILY 5 days 12/07/24 #15 tabs prednisone 20 mg tablet 60 mg (3 x 20 mg) PO DAILY 5 days 12/07/24 #15 tabs Allergies Allergy/AdvReac Type Severity Reaction Status Date / Time No Known Allergies Allergy Verified 12/07/24 01:42 Review of Systems Review of Systems: Yes all other systems are reviewed and are negative [facility] Past Medical History [facility] Narrative: Social history: He works is 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 He denies tobacco use. 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 Physical Exam Vital Signs: Vital Signs: Last Vital Signs Temp 98.2 F 12/07/24 04:23 Pulse 97 12/07/24 04:23 Resp 18 12/07/24 04:23 BP 132/84 12/07/24 04:23 Pulse Ox 99 12/07/24 04:23 O2 Del Method Room Air 12/07/24 04:23 BMI result Body Mass Index 34.4 vital signs were normal Exam: General: Awake, alert in no distress Head: Normocephalic, atraumatic EENT: PERRL, Lids normal, sclera normal, conjunctiva normal, nose normal , ears normal, throat without erythema or exudates Neck: Supple, no adenopathy Lung: breath sounds symmetric, minimal wheezing with forced expiration, no rales or rhonchi Chest: symmetric movement, nontender Heart: regular rate and rhythm, normal S1, S2 no murmurs or rubs Neuro: Awake, alert, oriented, normal speech Psych: Pleasant, cooperative Medications Administered Discontinued Medications Generic Name Dose Route Start Last Admin Trade Name Freq PRN Reason Stop Dose Admin Albuterol/Ipratropium 3 ml 12/07/24 02:28 12/07/24 02:34 Albuterol/Iprat 2.5/0.5mg 3 Ml Ampul.Neb INHALE 12/07/24 02:29 3 ml ONCE ONE Administration Azithromycin 500 mg 12/07/24 04:07 12/07/24 04:19 Azithromycin 500 Mg Tablet PO 12/07/24 04:08 500 mg ONCE ONE Administration Magnesium Sulfate 2 gm in 50 mls @ 150 mls/hr 12/07/24 01:59 12/07/24 02:36 Magnesium Sulfate/H2o IV 12/07/24 02:18 Infused ONCE ONE Infusion Methylprednisolone Sodium Succinate 60 mg 12/07/24 01:59 12/07/24 02:14 Methylprednisolone Sod Succ 125 Mg/2 Ml Vial IVPUSH 12/07/24 02:00 60 mg ONCE ONE Administration Medical Decision Making Medical Decision Making MDM Narrative: 29-year-old male with a history of reactive airway disease triggered by URI who presents emergency department for evaluation of shortness of breath x2 weeks. Patient states that he has had a nonproductive cough, rhinorrhea, shortness of breath and dyspnea on exertion which is gotten worse over the past 2-3 days, he has been using his albuterol inhaler frequently with minimal effect. Differential diagnosis: Includes but is not limited to pneumonia, bronchitis, viral syndrome, reactive airway disease, asthma exacerbation Course: My independent interpretation patient's laboratory evaluation is as follows: CBC and BMP were normal. COVID-19, influenza and RSV were negative. Chest x-ray revealed no evidence for pneumonia. patient's presentation is consistent with acute bronchitis causing reactive airway disease. The patient was prescribed Zithromax Z-Isidro and prednisone 60 mg once a day for 5 days. He was given his 1st dose of Zithromax and prednisone here in the emergency department. Patient was given printed and verbal instructions and discharged home. Admission/Observation Consideration of admission/observation: Escalation of care including admission/observation considered ( Yes) Lab Data MDM Lab Attestation statement: I reviewed the patient's lab results. 12/07/24 02:13 12/07/24 02:13 Labs: Lab Results 12/07/24 12/07/24 Range/Units 01:56 02:13 WBC 9.1 (4.8-10.8) X10*3/uL RBC 5.30 (4.60-5.80) X10*6/uL Hgb 15.3 (14.0-18.0) g/dl Hct 43.3 (42.0-52.0) % MCV 81.7 (80.0-98.0) fL MCH 28.9 (27.0-33.0) pg MCHC 35.3 (31.0-36.0) g/dl RDW 12.6 (11.0-16.0) % Plt Count 229 (160-400) X10*3/uL MPV 10.6 (9.4-12.4) fL Immature Gran % (Auto) 0.3 (0.0-0.4) % Neut % (Auto) 62.4 (45-73) % Lymph % (Auto) 24.3 (20-40) % Garvin % (Auto) 10.2 (2-11) % Eos % (Auto) 2.4 (0-4) % Baso % (Auto) 0.4 (0-2) % Lymph # (Auto) 2.2 (1.2-4.9) X10*3/uL Garvin # (Auto) 0.9 (0.1-1.2) X10*3/uL Eos # (Auto) 0.2 (0.0-0.4) X10*3/uL Baso # (Auto) 0.0 (0.0-0.2) X10*3/uL Abs Immat Gran (auto) 0.03 (0.00-0.03) X10*3/uL Absolute Neuts (auto) 5.7 (2.0-8.3) x10*3/uL Absolute Nucleated RBC 0.000 (0.0-0.012) X10*3/uL Nucleated RBC % (auto) 0.0 (0.0-0.2) /100WBC Sodium 142 (135-145) mmol/L Potassium 4.2 (3.3-5.1) mmol/L Chloride 106 (96-108) mmol/L Carbon Dioxide 28 (22-29) mmol/L Anion Gap 12 (12-20) BUN 11 (9-16) mg/dL Creatinine 1.04 (0.5-1.4) mg/dL Estim Creat Clear Calc 110.3 Estimated GFR > 60 Random Glucose 109 (60-115) mg/dL Calcium 9.9 (8.4-10.2) mg/dL Influenza Type A (PCR) NEGATIVE (Negative) Influenza Type B (PCR) NEGATIVE (Negative) RSV RNA Qual (PCR) NEGATIVE (Negative) SARS-CoV-2 RNA (RT-PCR) NEGATIVE (Negative) Independent Interpretation I performed an independent interpretation of an: Plain X-Ray Interpretation: My independent interpretation of the patient's chest x-ray is as follows: No acute disease, no pneumonia seen Radiology Impression Discussion of test interpretation with radiology: I have reviewed the radiologist's reading. Radiologist Impression: 2 views chest Comparison: None Findings: No consolidation or effusion. No acute fractures. Impression: 1. Heart size at the upper limits of normal without failure. This document has been electronically signed by: Orestes Umanzor MD on 12/07/2024 02:24:56 Prescription Management I considered prescription management with: Antibiotic ( Zithromax Z-Isidro) and Other ( anti-inflammatory steroid: Prednisone) Chronic Conditions Patient?s care impacted by: Other asthma Discharge Plan Discharge Clinical Impression: Acute bronchitis, Asthma exacerbation Patient Disposition: Home, Self-Care Instructions: Acute Bronchitis (ED) Additional Instructions: Your chest x-ray was unremarkable with no evidence of pneumonia Your blood work was normal. Your COVID-19, influenza and RSV tests were negative. Your symptoms are consistent with a bacterial bronchitis which is causing a flare-up of your asthma. Take Zithromax (azithromycin) Z-Isidro as prescribed. Day 1 take 2 pills, each day after that take 1 pill for total of 5 days. This medication states in your system for 7-10 days and continues to work despite only taking it for 5 days. Take prednisone 20 mg pills, 3 pills once a day for 5 days. While you ?are taking prednisone, do not take any NSAIDs (Motrin, Advil, ibuprofen, Aleve, naproxen). Use the albuterol inhaler with the spacer, 2 puffs every 4-6 hours as needed for shortness of breath and wheezing. Follow-up with your doctor in 2 days. Please return to the emergency department if your symptoms get worse or if you develop any symptoms that are concerning to you. Prescriptions: New prednisone 20 mg tablet 60 mg PO DAILY 5 Days Qty: 15 0RF albuterol sulfate [Ventolin HFA] 90 mcg/actuation HFA aerosol inhaler 2 puff inhalation Q4-6H PRN (Reason: shortness of breath or wheezing) Qty: 8.5 0RF prednisone 20 mg tablet 60 mg PO DAILY 5 Days Qty: 15 0RF azithromycin [Zithromax Z-Isidro] 250 mg tablet See Rx Instructions PO .COMPLEX Qty: 6 0RF Rx Instructions: take 500 mg today (day 1), then 250 mg for 4 days (days 2-5) Stand Alone Forms: Work/School Release Interventions: ED Discharge Assessment Last Done: 12/07/24 04:23 Discharge Date/Time: 12/07/24 04:24 Print Language: Greenlandic
[2024-12-07 03:43] VITALS: BP 132/84; PULSE 97; RESP 18; TEMP 36.8; O2SAT 99
[2024-12-07] MEDS: Azithromycin 500 MG TABLET PO (04:19)
[2024-12-07 04:23] VITALS: BP 132/84; PULSE 97; RESP 18; TEMP 36.8; O2SAT 99
== END 2024-12-07 04:24 | disposition home or self-care (01) ==
PROVIDERS: Emergency Medicine; Emergency Provider Emergency Medicine Emergency Medical Services
DX: J20.9 Acute bronchitis, unspecified (principal); J45.901 Unspecified asthma with (acute) exacerbation; R06.02 Shortness of breath; J34.89 Other specified disorders of nose and nasal sinuses; R05.9 Cough, unspecified; Z79.899 Other long term (current) drug therapy; Z03.818 Encounter for observation for suspected exposure to other biological agents ruled out
CPT/HCPCS: 0241U; 36415; 71046; 80048; 85025; 94640; 96365; 96375; 99284; J2919; J3475

== ENCOUNTER → 2024-12-07 01:45 | Outpatient (BNV) | payer OTHER, SELFPAY | PROVIDERS: Visit Provider Radiology Diagnostic Radiology | DX: R06.02 Shortness of breath (principal) | CPT/HCPCS: 71046 ==

== ENCOUNTER 2024-12-09 08:18 | Observation (INO) | payer OTHER, SELFPAY ==
[2024-12-09] VITALS (11 sets, daily range): BP systolic 101–141; BP diastolic 55–88; PULSE 103–120; RESP 13–26; TEMP 36.6–38.7; O2SAT 97–100; BMI 41.8
--- NOTE | ~2024-12-09 | CT_ITS ---
EXAMINATION: CT ANGIOGRAM CHEST CLINICAL INFORMATION: Tachycardia COMPARISON: None available. TECHNIQUE: Multiple axial images were obtained through the chest after the administration of 50 mL of Omnipaque 350 intravenous contrast. Extensive vascular post-processing including two-dimensional and three-dimensional reformatted images were created and reviewed on an independent workstation. This CT examination was performed using dose optimization techniques as appropriate, variously including the following: *Automated exposure control *Adjustment of mA and/or kV according to patient size (this includes techniques or standardized protocols for targeted exams where dose is matched to indication/reason for exam; i.e. extremities or head) *Use of iterative reconstruction technique DLP: 437 mGy centimeter. FINDINGS: Inadequate smart prepped technique. No intraluminal defects within the main pulmonary artery or its main branches. No aneurysm or dissection, thoracic aorta. No consolidation, pleural effusion or pneumothorax. No bronchiectasis. No honeycombing. No lymphadenopathy, mediastinum or perihilar. No pericardial effusion. No acute fracture or listhesis in the axial skeleton. Sternal is intact. The ribs are intact. The scapula is intact bilaterally. Included clavicles are intact.. CT/CT angio chest PE protocol IMPRESSION: No acute pulmonary artery emboli. No aneurysm or dissection, thoracic aorta. No acute airspace disease. Fleischner guidelines were followed. Electronically signed by: Scott Aguilar MD 12/09/2024 12:49 PM [facility]
--- OUTSIDE RECORDS SUMMARY | 2024-12-09 08:48 | XMS_ITS | Clinical Summary ---
Author Organization [facility] Address [address] [place] [phone] Phone Care Team Providers Care Doorshaker Name Role Phone Unavailable Primary Care Provider Unavailabl e Immunizations Name Administration Dates Next Due DTP 05/03/1996,03/03/1996,01/01/1996 DTaP 5 07/04/2001,03/03/1997 Hep B, ped/adol 05/03/1996,03/03/1996,01/01/1996 Hib (PRP-T) 03/03/1997,199 6,03/03/1996, 996 IPV 06/04/2001,199 6,03/03/1996, 996 MMR 06/04/2001,08/11/1997 Meningococcal Conj (Menactra) MCV4P 01/31/2007 Tdap 01/31/2007 Varicella 02/04/2008,08/05/1998 Family History Relation Name Status Comments Father Alive Father: Alive a nd well Mother Alive Mother: ADD/ADH D Other Family history of ADD/ADHD Social History Tobacco Use Types Packs/Day Years Used Date Smoking Tobacco: Former Comments:Former smoker Sex and Gender Information Value Date Recorded Sex Assigned at Not on file Legal Sex Male 4:41 PM EDT Gender Identity Not on file Sexual Orientation Not on file Last Filed Vital Signs Vital Sign Reading Time Taken Comments Blood Pressure 114/70 05/15/2012 12:00 AM EDT Pulse - - Temperature 36.1 ??C (97 ??F) 08/08/2012 12:00 AM EDT Respiratory Rate - - Oxygen Saturation - - Inhaled Oxygen Concentration - - Weight 55.3 kg (122 lb) 08/08/2012 12:00 AM EDT Height 161.3 cm (5' 3.5 ) 05/15/2012 12:00 AM ED T Body Mass Index - - Plan of Treatment Health Maintenance Due Date Last Done Comments Consider Men B Vaccine (1 of 2 - Bexsero 2-dose series) 2011 DTaP,Tdap,and Td Vaccines (7 - Td or Tdap) 01/31/2017 01/31/2007, 07/04/2001, 03/03/1997, Additional history exists Influenza Vaccines (#1) 2024 COVID-19 Vaccine ( season) 2024 Hepatitis B Vaccines Completed 05/03/1996, 03/03/1996, 01/01/1996 HIB Vaccines Completed 03/03/1997, 04/06, 03/03/1996, Additional history exists IPV Vaccines Completed 06/04/2001, 04/06, 03/03/1996, Additional history exists MMR Vaccines Completed 06/04/2001, 08/11/1997 Meningococcal Vaccine Aged Out 01/31/2007 No socrates catalino eligible based on patient's age to complete this topic Varicella Vaccines Completed 02/04/2008, 08/05/1998 HPV Vaccines Aged Out No longer eligi ble based on patient's age to complete this topic Hepatitis A Vaccines Aged Out No long er eligible based on patient's age to complete this topic Men B Vaccine Aged Out No longer elig ible based on patient's age to complete this topic Pneumococcal Vaccine Aged Out No long er eligible based on patient's age to complete this topic
--- NOTE | 2024-12-09 10:06 | ECG_ITS ---
Test Reason : TACHYCARDIA/SOB Blood Pressure : */* mmHG Vent. Rate : 102 BPM Atrial Rate : 102 BPM P-R Int : 132 ms QRS Dur : 96 ms QT Int : 328 ms P-R-T Axes : 18 93 0 degrees QTcB Int : 427 ms Sinus tachycardia Rightward axis Borderline ECG When compared with ECG of 19-Jan-2023 14:54, CT interval has increased Vent. rate has decreased by 55 bpm Nonspecific T wave abnormality now evident in Anterior leads Referred By: Ye Baez Electronically Signed By: Rocco Potts
--- NOTE | 2024-12-09 10:11 | ED_ITS ---
HPI - General Adult General Chief complaint: Dyspnea Stated complaint: bronchitis, diff breathing Time Seen by Provider: 12/09/24 09:42 Source: patient Mode of arrival: ambulatory Limitations: no limitations History of Present Illness HPI narrative: 29-year-old male healthy with no past medical history presents to ED for shortness of breath and coughing. Patient was diagnosed with bronchitis this past weekend with states still having coughing with shortness of breath. Patient denies any recent long travel or recent surgery. Patient denies any leg swelling or calf pain. Patient states no one else at home being sick. Related Data Previous Rx's ?Medication ?Instructions ?Recorded albuterol sulfate 90 mcg/actuation 2 puff inhalation Q4-6H PRN 12/07/24 aerosol inhaler (Ventolin HFA) shortness of breath or wheezing #8.5 grams azithromycin 250 mg tablet See Rx Instructions PO .COMPLEX #6 12/07/24 (Zithromax Z-Isidro) tabs prednisone 20 mg tablet 60 mg (3 x 20 mg) PO DAILY 5 days 12/07/24 #15 tabs prednisone 20 mg tablet 60 mg (3 x 20 mg) PO DAILY 5 days 12/07/24 #15 tabs codeine 10 mg-guaifenesin 100 mg/5 10 ml PO Q4-6H PRN cough 3 days 12/09/24 mL oral liquid (Guaifenesin AC) #118 mL Allergies Allergy/AdvReac Type Severity Reaction Status Date / Time No Known Allergies Allergy Verified 12/09/24 08:24 Review of Systems 2 Review of Systems: Coughing shortness of breath Yes all other systems are reviewed and are negative PMFSH Past Medical History Medical History Lactose intolerance Social History Social History Alcohol intake: current Alcohol intake frequency: a few times a month Patient Tobacco Use Status: Never used Tobacco Smoked in Last 30 Days: No Use of substances other than those prescribed or required for medical reasons: No Advance Directives: No Advance Directives Information Provided: Yes Do you have a plan to hurt others: No Plan Current occupational status: employed 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 Physical Exam ED Vital Signs: Vital Signs - 24 hr 12/09/24 08:20 12/09/24 10:13 12/09/24 10:28 Temperature 98.9 F 97.9 F Pulse Rate 109 H 109 H 106 H Respiratory Rate 24 H 14 13 Blood Pressure 141/88 H 132/79 132/79 Pulse Oximetry 99 97 97 Oxygen Delivery Method Room Air Room Air Room Air 12/09/24 10:33 12/09/24 11:22 12/09/24 14:22 Temperature 99.8 F Pulse Rate 103 H 112 H Respiratory Rate 24 H 14 Blood Pressure 101/55 L Pulse Oximetry 100 97 Oxygen Delivery Method Room Air 12/09/24 15:46 Temperature 101.6 F H Pulse Rate Respiratory Rate Blood Pressure Pulse Oximetry Oxygen Delivery Method BMI result Body Mass Index 41.8 Const General: cooperative, healthy appearing, comfortable, no acute distress, well developed, alert, awake and Physically active Orientation/consciousness: patient oriented x3 [facility] [place] Head: Yes normal to inspection, Yes No palpable skull fracture present, Yes normocephalic and Yes atraumatic Ears: hearing grossly normal bilaterally, external ears normal, TM's normal bilaterally, TM normal on the right, TM normal on the left, EAC's normal, mastoids normal and no periauricular adenopathy Throat: Yes posterior oropharynx normal, Yes tonsils normal and Yes uvula midline Eyes General: appearance normal, both eyes and all related structures Neck Neck: Yes normal visual inspection, Yes full ROM, Yes no lymphadenopathy, Yes no meningeal signs, Yes trachea midline, Yes supple, No anterior neck swelling and No tender Chest Chest palpation & inspection: normal inspection of the chest and normal palpation of entire chest wall Resp Other: Coughing Effort & Inspection: normal respiratory effort and able to speak in complete sentences Auscultation: diminished lung sounds Cardio Jugular venous distension: no JVD Heart sounds: S1 normal heart sound present and S2 normal heart sound present GI Inspection: Yes normal to inspection Palpation (GI): Soft to palpation, not firm, nontender, no guarding and not rigid General: Yes no CVA tenderness Back/Spine/Pelvis Back: no CVA tenderness and No back tenderness Skin General skin exam: no rashes or lesions noted, elasticity normal and turgor normal Neuro General: patient oriented x3, gait normal, tone normal, moves all extremities, Normal light touch and pain sensation, no meningeal signs, no focal motor deficits, CN's II-XI intact bilaterally and normal sensation to monofilament Extrem Other: Bilateral lower extremity negative for swelling, pitting edema, or calf tenderness General: Yes normal to inspection, Yes full ROM and Yes capillary refill normal Psych Appearance: grossly normal, well kempt and not disheveled Medications Administered Discontinued Medications Generic Name Dose Route Start Last Admin Trade Name Freq PRN Reason Stop Dose Admin Acetaminophen 975 mg 12/09/24 15:51 12/09/24 16:31 Acetaminophen 325 Mg Tablet PO 12/09/24 15:52 975 mg ONCE ONE Administration Ceftriaxone Sodium 1 gm 12/09/24 15:51 12/09/24 16:58 Ceftriaxone Sodium 1 Gm Vial IVPUSH 12/09/24 15:52 1 gm ONCE ONE Administration Albuterol Sulfate 5 mg/ 0 mg 12/09/24 10:28 12/09/24 10:31 Albuterol/Ipratropium 3 ml INHALE 12/09/24 10:29 1 each ONCE ONE Administration Guaifenesin/Codeine Phosphate 10 ml 12/09/24 10:08 12/09/24 10:47 Guaifen/Codeine Sf 200/20/10ml 10 Ml Liquid PO 12/09/24 10:09 10 ml STAT STA Administration Sodium Chloride 1,000 mls @ 999 mls/hr 12/09/24 11:18 12/09/24 12:57 Ns IV 12/09/24 12:18 Infused .Q1H1M STA Infusion Sodium Chloride 1,000 mls @ 999 mls/hr 12/09/24 11:20 12/09/24 12:57 Ns IV 12/09/24 12:20 Infused .Q1H1M STA Infusion Magnesium Sulfate 2 gm in 50 mls @ 25 mls/hr 12/09/24 15:12 12/09/24 16:38 Magnesium Sulfate/H2o IV 12/09/24 17:11 Infused ONCE ONE Infusion Iohexol 100 ml 12/09/24 12:09 12/09/24 12:09 Iohexol 350 Mg/Ml 100 Ml Infus..Btl IV 12/09/24 12:10 65 ml ONCE ONE Administration Methylprednisolone Sodium Succinate 125 mg 12/09/24 14:55 12/09/24 15:39 Methylprednisolone Sod Succ 125 Mg/2 Ml Vial IVPUSH 12/09/24 14:56 125 mg ONCE ONE Administration Medical Decision Making Medical Decision Making MDM Narrative: 29-year-old male presents to ED for coughing shortness of breath. Most likely patient is having URI bronchitis causing symptoms but will do labs EKG and D- dimer. ED broke and Robitussin cough medication ordered. 10:55am: PERC Score 1. D- Dimer 155 which is negative. Upper normal limit is 240. Troponin is negative. EKG negative STEMI. Heart Score 1. BNP is negative. Patient received 3 nebulizer treatment and guasenfin AC. Will DO ambulatory oxygen test. 11:23am: Lungs are clear. On ambulatory oxygen test O2 saturation 100% the heart rate went up to as high as 186. Albuterol can cause tachycardia but because of heart rate high 186 on ambulation we will still send for chest CTA to rule out PE. Fluids ordered. 1:46pm: Patient has steroids at home. Patient informed continue taking prescribed azithromycin and steroids. Heart rate improved. Chest CTA negative for PE, pneumonia, pleural effusion, or any other life-threatening etiology.. Not suspecting pericarditis, myocarditis, cardiac tamponade, CHF, IA, PE, any other life-threatening etiology. 3:15pm: Patient's O2 saturation dropped to 85%. On ambulation heart rate went up to 160 170 repeat EKG ordered. Mag Solu-Medrol ordered. We will discuss case with Dr. Quintanilla. blood pressure 96/46. 4:03pm: 2 repeat EKGs were done which showed that patient went into SVT and then self resolved without any medication to sinus tach. Once again on ambulation patient's heart rate was up to 180s. Patient then became febrile hypotensive. Case was was discussed with Dr. Potts comparison shopper who states give metoprolol p.o. bid to control heart rate only if blood pressure is stable. He recommends observation admission. Patient is hypotensive. Patient already received fluids we will give antibiotics although presently no source of infection. Respiratory panel ordered. 5:10pm: Case accepted by Dr. Quintanilla for admission Differential Diagnosis Differential Diagnoses: The differential diagnosis associated with the presentation includes (PE, pneumonia, CHF) Admission/Observation Consideration of admission/observation: Escalation of care including admission/observation considered Consult Healthcare Provider Management of the patient was discussed with: Slime Plant Operator (Buildings And Grounds Director) Lab Data [facility] Lab Attestation statement: I reviewed the patient's lab results. 12/09/24 10:23 12/09/24 10:23 Labs: Lab Results 12/09/24 12/09/24 Range/Units 10:23 15:18 WBC 10.5 (4.8-10.8) X10*3/uL RBC 5.12 (4.60-5.80) X10*6/uL Hgb 14.8 (14.0-18.0) g/dl Hct 43.3 (42.0-52.0) % MCV 84.6 (80.0-98.0) fL MCH 28.9 (27.0-33.0) pg MCHC 34.2 (31.0-36.0) g/dl RDW 13.2 (11.0-16.0) % Plt Count 225 (160-400) X10*3/uL MPV 10.8 (9.4-12.4) fL Immature Gran % (Auto) 0.6 H (0.0-0.4) % Neut % (Auto) 67.8 (45-73) % Lymph % (Auto) 18.2 L (20-40) % [place] % (Auto) 11.5 H (2-11) % Eos % (Auto) 1.6 (0-4) % Baso % (Auto) 0.3 (0-2) % Lymph # (Auto) 1.9 (1.2-4.9) X10*3/uL [place] # (Auto) 1.2 (0.1-1.2) X10*3/uL Eos # (Auto) 0.2 (0.0-0.4) X10*3/uL Baso # (Auto) 0.0 (0.0-0.2) X10*3/uL Abs Immat Gran (auto) 0.06 H (0.00-0.03) X10*3/uL Absolute Neuts (auto) 7.1 (2.0-8.3) x10*3/uL Absolute Nucleated RBC 0.000 (0.0-0.012) X10*3/uL Nucleated RBC % (auto) 0.0 (0.0-0.2) /100WBC PT 10.7 L (10.9-12.4) SEC INR 0.9 (0.9-1.1) APTT 28.1 (26.0-36.8) SEC D-Dimer High Sensitivty 155 NG/ML Sodium 142 (135-145) mmol/L Potassium 4.0 (3.3-5.1) mmol/L Chloride 109 H (96-108) mmol/L Carbon Dioxide 27 (22-29) mmol/L Anion Gap 10 L (12-20) BUN 11 (9-16) mg/dL Creatinine 0.99 (0.5-1.4) mg/dL Estim Creat Clear Calc 107.1 Estimated GFR > 60 Random Glucose 91 (60-115) mg/dL Lactic Acid 3.2 H* (0.5-2.0) mmol/L Calcium 9.1 D (8.4-10.2) mg/dL Total Bilirubin 0.5 (0.0-1.0) mg/dL AST 26 (5-37) U/L ALT 42 H (0-40) U/L Alkaline Phosphatase 52 (39-117) U/L Troponin I High Sens < 2.7 < 2.7 (<3.5-35.0) ng/L B-Natriuretic Peptide < 10 (<100) pg/mL Total Protein 7.2 (6.5-8.0) g/dL Albumin 4.2 (3.5-5.0) g/dL TSH 1.47 (0.32-4.0) uIU/mL Independent Interpretation I performed an independent interpretation of an: EKG (EKG 1# Sinus tach, EkG #2 SVT, EKG 3# sinus tach) Critical Care Time Critical Care Time Critical Care Time: Yes Total Critical Care Time: 60 Attestation: Patient presents to ED with URI symptoms with with shortness of breath and tachycardia on exertion. Patient's heart rate hives 180s. Patient went into SVT that self resolved without any medication. Patient became febrile and hypotensive. One episode of hypoxia. CTA negative for PE. Case discussed with comparison shopper who recommend admission and and metoprolol b.i.d. if blood pressure stable. Blood pressure hypotensive so metoprolol was held. Case was given to hospitalist for admission Dr. Quintanilla. Patient also received during the ED Solu- Medrol, magnesium, and ED bronchodilator Discharge Plan Discharge Clinical Impression: Bronchitis, SVT (supraventricular tachycardia) Patient Disposition: Admitted As Inpatient Additional Instructions: Your EKG labs and imaging came back reassuring. Continue taking azithromycin, albuterol inhaler and prednisone as prescribed by previous provider. Return to the ED immediately for any chest pain, shortness of breath, calf swelling, weakness, dizziness, coughing up blood clots, or any other concerning symptoms. Recommend follow up with primary care provider. You will be discharged with guaifenesin with codeine which can cause drowsiness. Do not take while driving or work. Only take it for [address]/CT angio chest PE protocol IMPRESSION: No acute pulmonary artery emboli. No aneurysm or dissection, thoracic aorta. No acute airspace disease. Fleischner guidelines were followed. Electronically signed by: Scott Aguilar MD 12/09/2024 12:49 PM [facility] Print Language: Faroese
[2024-12-09 10:28] LABS: MANUAL DIFF FLAG NO
[2024-12-09 10:30] LABS: Basophils Percent Auto 0.3 % (0-2); Eosinophils Absolute Auto 0.2 X10*3/uL (0.0-0.4); Eosinophils Percent Auto 1.6 % (0-4); Hematocrit 43.3 % (42.0-52.0); Hemoglobin 14.8 g/dl (14.0-18.0); Imm Gran Abs Auto 0.06 X10*3/uL (0.00-0.03); Imm Gran Pct Auto 0.6 % (0.0-0.4); Lymphocytes Absolute Auto 1.9 X10*3/uL (1.2-4.9); Lymphocytes Percent Auto 18.2 % (20-40); Mean Corpuscular HGB Conc 34.2 g/dl (31.0-36.0); Mean Corpuscular Hemoglobin 28.9 pg (27.0-33.0); Mean Corpuscular Volume 84.6 fL (80.0-98.0); Mean Platelet Volume 10.8 fL (9.4-12.4); Monocytes Absolute Auto 1.2 X10*3/uL (0.1-1.2); Monocytes Percent Auto 11.5 % (2-11); Neutrophils Absolute Auto 7.1 x10*3/uL (2.0-8.3); Neutrophils Percent Auto 67.8 % (45-73); Platelet Count 225 X10*3/uL (160-400); Red Blood Count 5.12 X10*6/uL (4.60-5.80); Red Cell Distribution Width 13.2 % (11.0-16.0); White Blood Count 10.5 X10*3/uL (4.8-10.8)
[2024-12-09] MEDS: Albuterol Sulfate 5 MG, Albuterol/Iprat 2.5/0.5MG 3 ML 3 ML INHALE (10:31)
[2024-12-09 10:35] LABS: INTERNATIONAL NORM RATIO 0.9 (0.9-1.1); Prothrombin Time 10.7 SEC (10.9-12.4)
[2024-12-09 10:37] LABS: D Dimer High Sensitivity 155 NG/ML
[2024-12-09 10:38] LABS: Partial Thromboplastin Time 28.1 SEC (26.0-36.8)
[2024-12-09 10:46] LABS: Alanine Aminotransferase 42 U/L (0-40); Albumin Level 4.2 g/dL (3.5-5.0); Alkaline Phosphatase 52 U/L (39-117); Anion Gap 10 (12-20); Aspartate Amino Transferase 26 U/L (5-37); Bilirubin Total 0.5 mg/dL (0.0-1.0); Blood Urea Nitrogen 11 mg/dL (9-16); Calcium 9.1 mg/dL (8.4-10.2); Carbon Dioxide 27 mmol/L (22-29); Chloride 109 mmol/L (96-108); Creatinine Clr Calc Pharmacy 107.1; Estimated Glomerular Filt Rate > 60; Glucose Random 91 mg/dL (60-115); Sodium 142 mmol/L (135-145); Total Protein 7.2 g/dL (6.5-8.0)
[2024-12-09] MEDS: guaiFEN/Codeine SF 200/20/10ML 10 ML LIQUID PO (10:47)
[2024-12-09 10:50] LABS: B Type Natriuretic Peptide < 10 pg/mL (<100)
[2024-12-09 10:56] LABS: Troponin-I High Sensitivity < 2.7 ng/L (<3.5-35.0)
--- NOTE | 2024-12-09 11:22 | PC.NURSE ---
Ambulating SPO2 = 100% on RA, but HR while ambulating was 186 sustaining. RUTH ANN Kaur notified and aware. Pt. ordered for CT at this time.
[2024-12-09] MEDS: 0.9 % Sodium Chloride 1,000 ML 999 ML IV ×2 (11:42)
[2024-12-09] MEDS: iohexoL 350 MG/ML 100 ML INFUS..BTL IV (12:09)
[2024-12-09 13:56] LABS: TSH reflex Free T4 1.47 uIU/mL (0.32-4.0)
--- NOTE | 2024-12-09 15:00 | ECG_ITS ---
Test Reason : TACHY Blood Pressure : */* mmHG Vent. Rate : 159 BPM Atrial Rate : * BPM P-R Int : * ms QRS Dur : 100 ms QT Int : 314 ms P-R-T Axes : * 130 -12 degrees QTcB Int : 510 ms Supraventricular tachycardia Right axis deviation ST & T wave abnormality, consider inferior ischemia Abnormal ECG When compared with ECG of 09-Dec-2024 10:17, Vent. rate has increased by 57 bpm QRS axis Shifted right Non-specific change in ST segment in Lateral leads Referred By: Ye Baez Electronically Signed By:
[2024-12-09] MEDS: methylPREDNISolone Sod Succ 125 MG/2 ML VIAL IVPUSH (15:39)
[2024-12-09 15:50] LABS: Lactic Acid 3.2 mmol/L (0.5-2.0)
--- NOTE | 2024-12-09 15:50 | PC.NURSE ---
Critical Lab Value on PT Lactic of 3.2 provider Jose Guadalupe VALLECILLO notified.
[2024-12-09 15:53] LABS: Troponin-I High Sensitivity < 2.7 ng/L (<3.5-35.0)
[2024-12-09] MEDS: Magnesium Sulfate/H2O 2 GM/50 ML PIGGYBACK IV (16:20)
[2024-12-09] MEDS: Acetaminophen 325 MG TABLET 975 MG PO (16:31)
[2024-12-09] MEDS: cefTRIAXone sodium 1 GM VIAL IVPUSH (16:58)
--- NOTE | 2024-12-09 17:09 | P.HPHOSP_ITS ---
History of Present Illness Date of Service: 12/09/24 Chief Complaint: Worsening shortness of breath 29-year-old male healthy with no past medical history presents to ED for shortness of breath and coughing. Patient was diagnosed with bronchitis this past weekend with states still having coughing with shortness of breath. Patient denies any recent long travel or recent surgery. Patient denies any leg swelling or calf pain. Patient states no one else at home being sick. Presented to ER with worsening shortness of breath; when ambulating heart rate in excess of 150 noticed to be in SVT. Cardiology suggested observation and they will see in a.m. 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 Meds Allergies Allergy/AdvReac Type Severity Reaction Status Date / Time No Known Allergies Allergy Verified 12/09/24 08:24 Active Medications: Current Medications Acetaminophen (Acetaminophen 325 Mg Tablet) 650 mg PO Q6H PRN PRN Reason: Pain, Mild 1-3,fever,headache Calcium Carbonate (Calcium Carbonate 750 Mg Tab.Chew) 750 mg PO Q4H PRN PRN Reason: Heartburn Enoxaparin Sodium (Enoxaparin Sodium 40 Mg/0.4 Ml Syringe) 40 mg SUBCUT Q24H YAHAIRA Magnesium Sulfate (Magnesium Sulfate/H2o) 2 gm in 50 mls @ 25 mls/hr IV ONCE ONE Stop: 12/09/24 17:11 Last Infusion: 12/09/24 16:38 Dose: Infused Azithromycin 500 mg/ Sodium (Chloride) 250 mls @ 125 mls/hr IV ONCE ONE Stop: 12/09/24 17:50 Ibuprofen (Ibuprofen 600 Mg Tablet) 600 mg PO Q6H PRN PRN Reason: Fever or Pain, Mild (Pain Scale 1-3) Magnesium Hydroxide (Milk Of Magnesia 30 Ml Oral.Susp) 30 ml PO DAILY PRN PRN Reason: Constipation Melatonin (Melatonin 3 Mg Tablet) 6 mg PO BEDTIME PRN PRN Reason: Insomnia Ondansetron HCl (Ondansetron Hcl 4 Mg/2 Ml Vial) 4 mg IVPUSH Q8H PRN PRN Reason: Nausea and Vomiting Sodium Chloride (0.9 % Sodium Chloride Flush 3 Ml Syringe) 3 ml IVFLUSH QSHIFT [facility] Physical Exam 2 Vital Signs and Narrative: Vital Signs: Last Vital Signs Temp 101.6 F H 12/09/24 15:46 Pulse 112 H 12/09/24 14:22 Resp 14 12/09/24 14:22 BP 101/55 L 12/09/24 14:22 Pulse Ox 97 12/09/24 14:22 O2 Del Method Room Air 12/09/24 14:22 BMI result Body Mass Index 41.8 Const: Other: Awake alert oriented x3 in no acute distress Resp: Other: Diminished throughout with scattered crackles right Cardio: Other: Tachycardic; no S4; positive S1-S2; no S3 murmurs rubs or gallops GI: Other: Soft nontender nondistended normoactive bowel sounds Extrem: Other: No edema bilaterally Results Labs 12/09/24 10:23 12/09/24 10:23 Labs: Laboratory Results - last 24 hr 12/09/24 12/09/24 10:23 15:18 MCV 84.6 MCH 28.9 MCHC 34.2 RDW 13.2 Plt Count 225 MPV 10.8 Immature Gran % (Auto) 0.6 H Neut % (Auto) 67.8 Lymph % (Auto) 18.2 L [place] % (Auto) 11.5 H Eos % (Auto) 1.6 Baso % (Auto) 0.3 Lymph # (Auto) 1.9 [place] # (Auto) 1.2 Eos # (Auto) 0.2 Baso # (Auto) 0.0 Abs Immat Gran (auto) 0.06 H Absolute Neuts (auto) 7.1 Absolute Nucleated RBC 0.000 Nucleated RBC % (auto) 0.0 PT 10.7 L INR 0.9 APTT 28.1 D-Dimer High Sensitivty 155 Anion Gap 10 L Estim Creat Clear Calc 107.1 Estimated GFR > 60 Random Glucose 91 Lactic Acid 3.2 H* Calcium 9.1 D Total Bilirubin 0.5 AST 26 ALT 42 H Alkaline Phosphatase 52 Troponin I High Sens < 2.7 < 2.7 B-Natriuretic Peptide < 10 Total Protein 7.2 Albumin 4.2 TSH 1.47 Imaging Radiologist's Impressions: Impressions Chest CTA 12/09/24 11:16 IMPRESSION: No acute pulmonary artery emboli. No aneurysm or dissection, thoracic aorta. No acute airspace disease. Fleischner guidelines were followed. Electronically signed by: Scott Aguilar MD 12/09/2024 12:49 PM EST Assessment and Plan (1) Bronchitis: Status: Acute Plan 29-year-old male with no significant past medical history diagnosed with bronchitis this past week that has worsened over time. He presented to the emergency room with shortness of breath that is markedly exacerbated by any movement. In the ER his heart rate worsen excessive 150 noted to be in short bursts of SVT. Exam consistent with a left lower lobe infiltrate 1. Bronchitis/left lower lobe infiltrate -azithromycin/ceftriaxone (1) -pulse dose Solu-Medrol antibiotics -DuoNebs q.4 hours p.r.n. 2. SVT -aggressive volume repletion -monitor on telemetry overnight -cardiology consult in a.m. Full code Lovenox Patient will be admitted overnight observation to monitor response to volume and for reoccurrence of SVT as well as IV antibiotics for treatment of pneumonia Quality Stroke Does the patient have a stroke diagnosis?: No VTE Prior VTE?: No VTE Risk Level:: Medical - moderate - high VTE Device Contraindication: Treatment Not Indicated VTE Drug Contraindication: N/A - Med Ordered
[2024-12-09 17:26] LABS: Reflex Lactate? Lactic Acid Added
--- NOTE | 2024-12-09 17:30 | PHA.MEDREC ---
Addendum entered by Zach Salmon [facility] 12/09/24 17:36: med rec reviewed Original Note: Pharmacy Consult ? Medication Reconciliation Pharmacy has completed the medication reconciliation. Spoke with patient and patients spouse at bedside. The spouse confirmed that the patient started taking the Azithromycin 250mg tab on 12/07 and is taking 1 tab daily for 5 days. She also confirmed the patient started the Prednisone 20mg regimen taking 3 tabs daily for 5 days. The patient and spouse confirmed the patient just got the codeine-guaifenesin 10-100 mg/5 mL solution today. The patient confirmed he was not able to take any medications this morning but took them yesterday.
[2024-12-09] MEDS: Azithromycin 500 MG in 0.9 % Sodium Chloride 250 ML 125 MG IV (17:32)
[2024-12-09 18:17] LABS: Appearance Urine Clear; Color Urine Yellow; Glucose Urine UA Negative (Negative); Leukocyte Esterase Urine Negative (Negative); Nitrite Urine Negative (Negative); Urine Blood Negative (Negative); Urine Ketones Negative (Negative); Urine Protein Negative (Neg-Trace)
[2024-12-09] MEDS: Enoxaparin Sodium 40 MG/0.4 ML SYRINGE SUBCUT (18:23)
[2024-12-09] MEDS: Lactated Ringers 1,000 ML 999 ML IV ×2 (18:33→20:29)
[2024-12-09 18:46] LABS: ~Lactic Acid-LAB USE ONLY 2.7 mmol/L (0.5-2.0)
--- NOTE | 2024-12-09 18:46 | PC.NURSE ---
Critical call from lab received, Lactic of 2.7
[2024-12-09] MEDS: Ibuprofen 600 MG TABLET PO (20:03)
[2024-12-09 20:09] LABS: Reflex Lactate? 2 Y
[2024-12-09 21:16] LABS: ~Lactic Acid-LAB USE ONLY 3.7 mmol/L (0.5-2.0)
[2024-12-09 22:57] LABS: COVID-19 Test Negative (Negative); IDNOW Serial# 6674DD1D
[2024-12-09] MEDS: methylPREDNISolone Sod Succ 125 MG/2 ML VIAL 60 MG IVPUSH (23:13)
[2024-12-10] VITALS: BP 140/69; PULSE 82; RESP 16; TEMP 36.1; O2SAT 97
[2024-12-10 00:13] VITALS: BMI 36.0
[2024-12-10] MEDS: Acetaminophen 325 MG TABLET 650 MG PO (00:24)
[2024-12-10] MEDS: 0.9 % Sodium Chloride Flush 3 ML SYRINGE IVFLUSH ×2 (00:25→08:50)
[2024-12-10 04:00] VITALS: BP 126/56; PULSE 64; RESP 16; TEMP 36.4; O2SAT 95
[2024-12-10] MEDS: methylPREDNISolone Sod Succ 125 MG/2 ML VIAL 60 MG IVPUSH (04:00)
[2024-12-10 06:57] LABS: MANUAL DIFF FLAG NO
[2024-12-10 07:06] LABS: Basophils Percent Auto 0.1 % (0-2); Hematocrit 43.8 % (42.0-52.0); Hemoglobin 15.2 g/dl (14.0-18.0); Imm Gran Abs Auto 0.08 X10*3/uL (0.00-0.03); Imm Gran Pct Auto 0.9 % (0.0-0.4); Lymphocytes Absolute Auto 1.2 X10*3/uL (1.2-4.9); Lymphocytes Percent Auto 13.8 % (20-40); Mean Corpuscular HGB Conc 34.7 g/dl (31.0-36.0); Mean Corpuscular Hemoglobin 28.8 pg (27.0-33.0); Mean Platelet Volume 10.9 fL (9.4-12.4); Monocytes Absolute Auto 0.2 X10*3/uL (0.1-1.2); Monocytes Percent Auto 2.1 % (2-11); Neutrophils Absolute Auto 7.4 x10*3/uL (2.0-8.3); Neutrophils Percent Auto 83.1 % (45-73); Platelet Count 238 X10*3/uL (160-400); Red Blood Count 5.28 X10*6/uL (4.60-5.80); Red Cell Distribution Width 12.7 % (11.0-16.0); White Blood Count 8.9 X10*3/uL (4.8-10.8)
[2024-12-10 07:19] LABS: Alanine Aminotransferase 55 U/L (0-40); Albumin Level 4.2 g/dL (3.5-5.0); Alkaline Phosphatase 54 U/L (39-117); Anion Gap 11 (12-20); Aspartate Amino Transferase 39 U/L (5-37); Bilirubin Total 0.6 mg/dL (0.0-1.0); Blood Urea Nitrogen 13 mg/dL (9-16); Calcium 9.2 mg/dL (8.4-10.2); Carbon Dioxide 26 mmol/L (22-29); Chloride 106 mmol/L (96-108); Creatinine Clr Calc Pharmacy 136.5; Estimated Glomerular Filt Rate > 60; Glucose Random 145 mg/dL (60-115); Potassium 4.2 mmol/L (3.3-5.1); Sodium 139 mmol/L (135-145); Total Protein 7.5 g/dL (6.5-8.0)
[2024-12-10 07:37] VITALS: BP 140/73; PULSE 82; RESP 20; TEMP 36.4; O2SAT 95
[2024-12-10 08:36] LABS: C Reactive Protein 3.21 mg/dL (< or = 0.50)
[2024-12-10] MEDS: predniSONE 20 MG TABLET 40 MG PO (08:49)
[2024-12-10 08:55] LABS: Procalcitonin 0.03 ng/mL
[2024-12-10 09:04] LABS: Adenovirus PCR Not Detected (Not Detect.); Bordetella parapertussis PCR Not Detected (Not Detect.); Bordetella pertussis PCR Not Detected (Not Detect.); Chlamydia pneumoniae PCR Not Detected (Not Detect.); Coronavirus 229E PCR Not Detected (Not Detect.); Coronavirus HKU1 PCR Not Detected (Not Detect.); Coronavirus NL63 PCR Not Detected (Not Detect.); Coronavirus OC43 PCR Not Detected (Not Detect.); Human metapneumovirus PCR Not Detected (Not Detect.); Influenza B PCR Not Detected (Not Detect.); Mycoplasma pneumoniae PCR Not Detected (Not Detect.); Parainfluenza 1 PCR Not Detected (Not Detect.); Parainfluenza 2 PCR Not Detected (Not Detect.); Parainfluenza 3 PCR Not Detected (Not Detect.); Parainfluenza 4 PCR Not Detected (Not Detect.); RSV PCR Not Detected (Not Detect.); Rhino/Enterovirus PCR Not Detected (Not Detect.); SARS-CoV-2 PCR Not Detected (Not Detect.)
[2024-12-10 09:37] LABS: Influenza A PCR Detected (Not Detect.)
--- NOTE | 2024-12-10 10:40 | P.CONCA_ITS ---
History of Present Illness History of Present Illness Date of Service: 12/10/24 Requesting physician: Jabari Rosario Chief complaint: Viral bronchitis with SVT Narrative: 29-year-old gentleman who presented to the emergency department with viral bronchitis and developed tachycardia. He said he had some palpitations. He has not been feeling well since the weekend and was coughing and came to emergency department initially and was treated as viral bronchitis and was given Z-Isidro and prednisone. He said he continued to feel bad and came in yesterday. His initial influenza test was negative but repeat influenza is positive. He does not have any history of cardiovascular disease in the past. I reviewed with the EKG in the ER when his heart rate was 159 beats per minute. I think he had sinus tachycardia at that time. Overall he is feeling better with treatment and hydration. He had low blood pressure which has improved also. [facility] Past Medical History Medical History (Updated 12/10/24 @ 10:49 by Rocco Potts MD) Lactose intolerance Social History Social History Household Members: Spouse Housing: Apartment Alcohol intake: current Alcohol intake frequency: a few times a month Patient Tobacco Use Status: Never used Tobacco Smoked in Last 30 Days: No Use of substances other than those prescribed or required for medical reasons: No Currently Displaying Signs/Symptoms of Drug Intoxication Withdrawal: No Any prior treatment program specific to substance use: No Have you been hit, kicked, punched, or otherwise hurt by someone within the past year? 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 Meds Allergies Allergy/AdvReac Type Severity Reaction Status Date / Time No Known Allergies Allergy Verified 12/09/24 08:24 Active Medications: Current Medications Acetaminophen (Acetaminophen 325 Mg Tablet) 650 mg PO Q6H PRN PRN Reason: Pain, Mild 1-3,fever,headache Last Admin: 12/10/24 00:24 Dose: 650 mg Calcium Carbonate (Calcium Carbonate 750 Mg Tab.Chew) 750 mg PO Q4H PRN PRN Reason: Heartburn Enoxaparin Sodium (Enoxaparin Sodium 40 Mg/0.4 Ml Syringe) 40 mg SUBCUT Q24H [facility] Last Admin: 12/09/24 18:23 Dose: 40 mg Ibuprofen (Ibuprofen 600 Mg Tablet) 600 mg PO Q6H PRN PRN Reason: Fever or Pain, Mild (Pain Scale 1-3) Last Admin: 12/09/24 20:03 Dose: 600 mg Magnesium Hydroxide (Milk Of Magnesia 30 Ml Oral.Susp) 30 ml PO DAILY PRN PRN Reason: Constipation Melatonin (Melatonin 3 Mg Tablet) 6 mg PO BEDTIME PRN PRN Reason: Insomnia Ondansetron HCl (Ondansetron Hcl 4 Mg/2 Ml Vial) 4 mg IVPUSH Q8H PRN PRN Reason: Nausea and Vomiting Oseltamivir Phosphate (Oseltamivir Phosphate 75 Mg Capsule) 75 mg PO Q12H [facility] Stop: 12/14/24 22:01 Prednisone (Prednisone 20 Mg Tablet) 40 mg PO DAILY [facility] Last Admin: 12/10/24 08:49 Dose: 40 mg Sodium Chloride (0.9 % Sodium Chloride Flush 3 Ml Syringe) 3 ml IVFLUSH QSHIFT [facility] Last Admin: 12/10/24 08:50 Dose: 3 ml Physical Exam 2 Vital Signs: Vital Signs: Last Vital Signs Temp 97.6 F 12/10/24 07:37 Pulse 82 12/10/24 07:37 Resp 20 12/10/24 07:37 BP 140/73 H 12/10/24 07:37 Pulse Ox 95 12/10/24 07:37 O2 Del Method Room Air 12/10/24 07:37 BMI result Body Mass Index 36.0 GENERAL APPEARANCE: in no acute distress, pleasant. NECK: no carotid bruit, no jugular venous distention. SKIN: no suspicious lesions, warm and dry. HEART: no murmurs, regular rate and rhythm. LUNGS: clear to auscultation bilaterally. ABDOMEN: soft, nontender. EXTREMITIES: no edema. PERIPHERAL PULSES: equal. NEUROLOGIC: No gross deficits, AAO X 3 Objective Labs and Meds 12/10/24 06:42 12/10/24 06:42 Lab results: Laboratory Results - last 24 hr 12/09/24 12/09/24 12/09/24 10:23 15:18 15:37 WBC RBC Hgb Hct MCV MCH MCHC RDW Plt Count MPV Immature Gran % (Auto) Neut % (Auto) Lymph % (Auto) [place] % (Auto) Eos % (Auto) Baso % (Auto) Lymph # (Auto) [place] # (Auto) Eos # (Auto) Baso # (Auto) Abs Immat Gran (auto) Absolute Neuts (auto) Absolute Nucleated RBC Nucleated RBC % (auto) Hold Purple Top Sodium 142 Potassium 4.0 Chloride 109 H Carbon Dioxide 27 Anion Gap 10 L BUN 11 Creatinine 0.99 Estim Creat Clear Calc 107.1 Estimated GFR > 60 Random Glucose 91 Lactic Acid 3.2 H* Lactic Acid F/U @ 2Hr Lactic Acid F/U @ 4Hr Calcium 9.1 D Total Bilirubin 0.5 AST 26 ALT 42 H Alkaline Phosphatase 52 Troponin I High Sens < 2.7 < 2.7 C-Reactive Protein B-Natriuretic Peptide < 10 Total Protein 7.2 Albumin 4.2 Procalcitonin TSH 1.47 Urine Color Urine Appearance Urine pH Ur Specific [place] Urine Protein Urine Glucose (UA) Urine Ketones Urine Blood Urine Nitrite Ur Leukocyte Esterase Respiratory Panel Becerra See Note Adenovirus (Rapid PCR) Not Detected B.pert (TEM-PCR) Not Detected B.parapertussis DNA PCR Not Detected C. pneumoniae DNA (PCR) Not Detected Coronavirus OC43 (PCR) Not Detected Coronavirus HKU1 (PCR) Not Detected Coronavirus 229E (PCR) Not Detected COVID-19 (FAVIAN) COVID-19 Clin Com Coronavirus NL63 (PCR) Not Detected Human Metapneumovir PCR Not Detected Influenza A (RT-PCR) Detected A Influenza B (RT-PCR) Not Detected M. pneumoniae (PCR) Not Detected Parainfluenza 1 (PCR) Not Detected Parainfluenza 2 (PCR) Not Detected Parainfluenza 3 (PCR) Not Detected Parainfluenza 4 (PCR) Not Detected RSV (PCR) Not Detected Entero/Rhino (PCR) Not Detected SARS-CoV-2 RNA (RT-PCR) Not Detected 12/09/24 12/09/24 12/09/24 17:44 20:48 20:57 WBC RBC Hgb Hct MCV MCH MCHC RDW Plt Count MPV Immature Gran % (Auto) Neut % (Auto) Lymph % (Auto) [place] % (Auto) Eos % (Auto) Baso % (Auto) Lymph # (Auto) [place] # (Auto) Eos # (Auto) Baso # (Auto) Abs Immat Gran (auto) Absolute Neuts (auto) Absolute Nucleated RBC Nucleated RBC % (auto) Hold Purple Top SEE NOTE Sodium Potassium Chloride Carbon Dioxide Anion Gap BUN Creatinine Estim Creat Clear Calc Estimated GFR Random Glucose Lactic Acid Lactic Acid F/U @ 2Hr 2.7 H* Lactic Acid F/U @ 4Hr 3.7 H* Calcium Total Bilirubin AST ALT Alkaline Phosphatase Troponin I High Sens C-Reactive Protein B-Natriuretic Peptide Total Protein Albumin Procalcitonin TSH Urine Color Yellow Urine Appearance Clear Urine pH 6.0 Ur Specific [place] 1.020 Urine Protein Negative Urine Glucose (UA) Negative Urine Ketones Negative Urine Blood Negative Urine Nitrite Negative Ur Leukocyte Esterase Negative Respiratory Panel Bec[place] Adenovirus (Rapid PCR) B.pert (TEM-PCR) B.parapertussis DNA PCR C. pneumoniae DNA (PCR) Coronavirus OC43 (PCR) Coronavirus HKU1 (PCR) Coronavirus 229E (PCR) COVID-19 (FAVIAN) COVID-19 Clin Com Coronavirus NL63 (PCR) Human Metapneumovir PCR Influenza A (RT-PCR) Influenza B (RT-PCR) M. pneumoniae (PCR) Parainfluenza 1 (PCR) Parainfluenza 2 (PCR) Parainfluenza 3 (PCR) Parainfluenza 4 (PCR) RSV (PCR) Entero/Rhino (PCR) SARS-CoV-2 RNA (RT-PCR) 12/09/24 12/10/24 22:32 06:42 WBC 8.9 RBC 5.28 Hgb 15.2 Hct 43.8 MCV 83.0 MCH 28.8 MCHC 34.7 RDW 12.7 Plt Count 238 MPV 10.9 Immature Gran % (Auto) 0.9 H Neut % (Auto) 83.1 H Lymph % (Auto) 13.8 L [place] % (Auto) 2.1 Eos % (Auto) 0.0 Baso % (Auto) 0.1 Lymph # (Auto) 1.2 [place] # (Auto) 0.2 Eos # (Auto) 0.0 Baso # (Auto) 0.0 Abs Immat Gran (auto) 0.08 H Absolute Neuts (auto) 7.4 Absolute Nucleated RBC 0.000 Nucleated RBC % (auto) 0.0 Hold Purple Top Sodium 139 Potassium 4.2 Chloride 106 Carbon Dioxide 26 Anion Gap 11 L BUN 13 Creatinine 0.86 Estim Creat Clear Calc 136.5 Estimated GFR > 60 Random Glucose 145 H Lactic Acid Lactic Acid F/U @ 2Hr Lactic Acid F/U @ 4Hr Calcium 9.2 Total Bilirubin 0.6 AST 39 H ALT 55 H Alkaline Phosphatase 54 Troponin I High Sens C-Reactive Protein 3.21 H B-Natriuretic Peptide Total Protein 7.5 Albumin 4.2 Procalcitonin 0.03 TSH Urine Color Urine Appearance Urine pH Ur Specific [place] Urine Protein Urine Glucose (UA) Urine Ketones Urine Blood Urine Nitrite Ur Leukocyte Esterase Respiratory Panel Bec[place] Adenovirus (Rapid PCR) B.pert (TEM-PCR) B.parapertussis DNA PCR C. pneumoniae DNA (PCR) Coronavirus OC43 (PCR) Coronavirus HKU1 (PCR) Coronavirus 229E (PCR) COVID-19 (FAVIAN) Negative COVID-19 Clin Com See Note Coronavirus NL63 (PCR) Human Metapneumovir PCR Influenza A (RT-PCR) Influenza B (RT-PCR) M. pneumoniae (PCR) Parainfluenza 1 (PCR) Parainfluenza 2 (PCR) Parainfluenza 3 (PCR) Parainfluenza 4 (PCR) RSV (PCR) Entero/Rhino (PCR) SARS-CoV-2 RNA (RT-PCR) Imaging Radiologist's impression: Impressions Chest CTA 12/09/24 11:16 IMPRESSION: No acute pulmonary artery emboli. No aneurysm or dissection, thoracic aorta. No acute airspace disease. Fleischner guidelines were followed. Electronically signed by: Scott Aguilar MD 12/09/2024 12:49 PM [facility] [place] and Plan (1) Bronchitis: Status: Acute (2) SVT (supraventricular tachycardia): Status: Acute Plan [age] year gentleman presenting with influenza a and viral bronchitis and episode of tachycardia in the emergency department. It was felt that he had SVT but on further review of the EKG it appears he was just having sinus tachycardia. On telemetry also had some tachycardic episodes which were all sinus tachycardia. He is saying when he starts coughing he gets racing of his heart. I have reassured him that he had bad episode of influenza and it is not unusual to have episodes of tachycardia with that. I think his presentation was sinus tachycardia from viral illness and not SVT. Conservative care and can be discharged home when stable. Thank you for allowing me to participate in the care of your patient. Please feel free to contact me if you have any questions. Procedures Date of Service Date of Service: 12/10/24
--- NOTE | 2024-12-10 10:55 | MHC.CM.PN ---
Addendum entered by Gabrielle Stone 12/10/24 13:43: DP: PT HAS BEEN MEDICALLY CLEARED FOR DC HOME, NO SERVICES. PT HAS OWN RIDE HOME Original Note: [employer] DELIVERED PT LIVES WITH SPOUSE, FUNCTIONALLY INDEPENDENT AND EMPLOYED. NO SVCES/DME. DECLINES HCP AT THIS TIME. NO PCP, [facility] [place] PROVIDED. DP: HOME, NO SERVICES IS THE PLAN. PT HAS OWN RIDE HOME. CM WILL CONTINUE TO FOLLOW FOR ANY CHANGE TO DC PLAN/NEEDS.
[2024-12-10] MEDS: Oseltamivir Phosphate 75 MG CAPSULE PO (11:05)
[2024-12-10 11:44] VITALS: BP 135/68; PULSE 88; RESP 20; TEMP 36.6; O2SAT 98
--- NOTE | 2024-12-10 13:43 | PM.DS ---
DS: Providers Provider Date of Service: 12/10/24 Date of admission: 12/09/24 17:03 Date of discharge: 12/10/24 Primary care physician: None Physician Consults: 12/10/24 07:13 Consult to Cardiology Routine Consulting Provider: [facility] Reason for consultation: SVT Has provider been notified: No DS: Diagnosis Discharge Diagnosis (1) Tachycardia: Status: Acute (2) Influenza: Status: Acute (3) Mild asthma with acute exacerbation: Status: Acute DS: Summary Hospital Course Hospital Course: From the history and physical by the admitting hospitalist, Quinton Quintanilla DO, 12/09/24: 29-year-old male healthy with no past medical history presents to ED for shortness of breath and coughing. Patient was diagnosed with bronchitis this past weekend with states still having coughing with shortness of breath. Patient denies any recent long travel or recent surgery. Patient denies any leg swelling or calf pain. Patient states no one else at home being sick. Presented to ER with worsening shortness of breath; when ambulating heart rate in excess of 150 noticed to be in SVT. Cardiology suggested observation and they will see in a.m. He was admitted to the telemetry unit with Cardiology consultation. Ultimately, telemetry and EKG were reviewed, and he did NOT have SVT, but rather, sinus tachycardia. He tested positive for influenza. He was started on oseltamivir. He was also started on prednisone due to wheezing, as he did admit to a history of asthma. He was discharged on oseltamivir, prednisone, and albuterol inhaler. He should establish primary care as soon as possible. Time Attestation Discharge Coordination Time (in mins): 45 Quality: Safe Use of Opioids Does Pt have an Active Cancer Diagnosis on the Problem List?: No Quality: Stroke Does the patient have a stroke diagnosis?: No Physical Exam Vital Signs: Vital Signs: Last Vital Signs Temp 97.8 F 12/10/24 11:44 Pulse 88 12/10/24 11:44 Resp 20 12/10/24 11:44 BP 135/68 12/10/24 11:44 Pulse Ox 98 12/10/24 11:44 O2 Del Method Room Air 12/10/24 11:44 BMI result Body Mass Index 36.0 Gen: in no acute distress HEENT: sclera anicteric, moist mucus membranes Neck: supple Lungs: clear to auscultation bilaterally Heart: regular rate and rhythm, no murmurs Abd: soft, non-tender, non-distended Ext: no edema Skin: warm/well-perfused Neuro: alert and oriented x3, no focal findings Psych: appropriate affect DS: Data Data Completed and Pending Completed studies during hospitalization [Text1]: Laboratory Results WBC 8.9 X10*3/uL (4.8-10.8) 12/10/24 06:42 RBC 5.28 X10*6/uL (4.60-5.80) 12/10/24 06:42 Hgb 15.2 g/dl (14.0-18.0) 12/10/24 06:42 Hct 43.8 % (42.0-52.0) 12/10/24 06:42 MCV 83.0 fL (80.0-98.0) 12/10/24 06:42 MCH 28.8 pg (27.0-33.0) 12/10/24 06:42 MCHC 34.7 g/dl (31.0-36.0) 12/10/24 06:42 RDW 12.7 % (11.0-16.0) 12/10/24 06:42 Plt Count 238 X10*3/uL (160-400) 12/10/24 06:42 MPV 10.9 fL (9.4-12.4) 12/10/24 06:42 Immature Gran % (Auto) 0.9 % (0.0-0.4) H 12/10/24 06:42 Neut % (Auto) 83.1 % (45-73) H 12/10/24 06:42 Lymph % (Auto) 13.8 % (20-40) L 12/10/24 06:42 [place] % (Auto) 2.1 % (2-11) 12/10/24 06:42 Eos % (Auto) 0.0 % (0-4) 12/10/24 06:42 Baso % (Auto) 0.1 % (0-2) 12/10/24 06:42 Lymph # (Auto) 1.2 X10*3/uL (1.2-4.9) 12/10/24 06:42 [place] # (Auto) 0.2 X10*3/uL (0.1-1.2) 12/10/24 06:42 Eos # (Auto) 0.0 X10*3/uL (0.0-0.4) 12/10/24 06:42 Baso # (Auto) 0.0 X10*3/uL (0.0-0.2) 12/10/24 06:42 Abs Immat Gran (auto) 0.08 X10*3/uL (0.00-0.03) H 12/10/24 06:42 Absolute Neuts (auto) 7.4 x10*3/uL (2.0-8.3) 12/10/24 06:42 Absolute Nucleated RBC 0.000 X10*3/uL (0.0-0.012) 12/10/24 06:42 Nucleated RBC % (auto) 0.0 /100WBC (0.0-0.2) 12/10/24 06:42 Hold Purple Top SEE NOTE 12/09/24 20:57 PT 10.7 SEC (10.9-12.4) L 12/09/24 10:23 INR 0.9 (0.9-1.1) 12/09/24 10:23 APTT 28.1 SEC (26.0-36.8) 12/09/24 10:23 D-Dimer High Sensitivty 155 NG/ML 12/09/24 10:23 Sodium 139 mmol/L (135-145) 12/10/24 06:42 Potassium 4.2 mmol/L (3.3-5.1) 12/10/24 06:42 Chloride 106 mmol/L (96-108) 12/10/24 06:42 Carbon Dioxide 26 mmol/L (22-29) 12/10/24 06:42 Anion Gap 11 (12-20) L 12/10/24 06:42 BUN 13 mg/dL (9-16) 12/10/24 06:42 Creatinine 0.86 mg/dL (0.5-1.4) 12/10/24 06:42 Estim Creat Clear Calc 136.5 12/10/24 06:42 Estimated GFR > 60 12/10/24 06:42 Random Glucose 145 mg/dL (60-115) H 12/10/24 06:42 Lactic Acid 3.2 mmol/L (0.5-2.0) H* 12/09/24 15:18 Lactic Acid F/U @ 2Hr 2.7 mmol/L (0.5-2.0) H* 12/09/24 17:44 Lactic Acid F/U @ 4Hr 3.7 mmol/L (0.5-2.0) H* 12/09/24 20:48 Calcium 9.2 mg/dL (8.4-10.2) 12/10/24 06:42 Total Bilirubin 0.6 mg/dL (0.0-1.0) 12/10/24 06:42 AST 39 U/L (5-37) H 12/10/24 06:42 ALT 55 U/L (0-40) H 12/10/24 06:42 Alkaline Phosphatase 54 U/L (39-117) 12/10/24 06:42 Troponin I High Sens < 2.7 ng/L (<3.5-35.0) 12/09/24 15:18 C-Reactive Protein 3.21 mg/dL (< or = 0.50) H 12/10/24 06:42 B-Natriuretic Peptide < 10 pg/mL (<100) 12/09/24 10:23 Total Protein 7.5 g/dL (6.5-8.0) 12/10/24 06:42 Albumin 4.2 g/dL (3.5-5.0) 12/10/24 06:42 Procalcitonin 0.03 ng/mL 12/10/24 06:42 TSH 1.47 uIU/mL (0.32-4.0) 12/09/24 10:23 Urine Color Yellow 12/09/24 17:44 Urine Appearance Clear 12/09/24 17:44 Urine pH 6.0 (5.0-9.0) 12/09/24 17:44 Ur Specific [place] 1.020 (1.005-1.025) 12/09/24 17:44 Urine Protein Negative mg/dL (Neg-Trace) 12/09/24 17:44 Urine Glucose (UA) Negative mg/dL (Negative) 12/09/24 17:44 Urine Ketones Negative mg/dL (Negative) 12/09/24 17:44 Urine Blood Negative (Negative) 12/09/24 17:44 Urine Nitrite Negative (Negative) 12/09/24 17:44 Ur Leukocyte Esterase Negative (Negative) 12/09/24 17:44 Respiratory Panel Becerra See Note 12/09/24 15:37 Adenovirus (Rapid PCR) Not Detected (Not Detect.) 12/09/24 15:37 B.pert (TEM-PCR) Not Detected (Not Detect.) 12/09/24 15:37 B.parapertussis DNA PCR Not Detected (Not Detect.) 12/09/24 15:37 C. pneumoniae DNA (PCR) Not Detected (Not Detect.) 12/09/24 15:37 Coronavirus OC43 (PCR) Not Detected (Not Detect.) 12/09/24 15:37 Coronavirus HKU1 (PCR) Not Detected (Not Detect.) 12/09/24 15: Coronavirus 229E (PCR) Not Detected (Not Detect.) 12/09/24 15:37 COVID-19 (FAVIAN) Negative (Negative) 12/09/24 22:32 COVID-19 Clin Com See Note 12/09/24 22:32 Coronavirus NL63 (PCR) Not Detected (Not Detect.) 12/09/24 15:37 Human Metapneumovir PCR Not Detected (Not Detect.) 12/09/24 15:37 Influenza A (RT-PCR) Detected (Not Detect.) A 12/09/24 15:37 Influenza B (RT-PCR) Not Detected (Not Detect.) 12/09/24 15:37 M. pneumoniae (PCR) Not Detected (Not Detect.) 12/09/24 15:37 Parainfluenza 1 (PCR) Not Detected (Not Detect.) 12/09/24 15:37 Parainfluenza 2 (PCR) Not Detected (Not Detect.) 12/09/24 15:37 Parainfluenza 3 (PCR) Not Detected (Not Detect.) 12/09/24 15:37 Parainfluenza 4 (PCR) Not Detected (Not Detect.) 12/09/24 15:37 RSV (PCR) Not Detected (Not Detect.) 12/09/24 15:37 Entero/Rhino (PCR) Not Detected (Not Detect.) 12/09/24 15:37 SARS-CoV-2 RNA (RT-PCR) Not Detected (Not Detect.) 12/09/24 15:37 Impressions Chest CTA 12/09/24 11:16 IMPRESSION: No acute pulmonary artery emboli. No aneurysm or dissection, thoracic aorta. No acute airspace disease. Fleischner guidelines were followed. Electronically signed by: Scott Aguilar MD 12/09/2024 12:49 PM EST Discharge Plan Discharge Patient Disposition: Home, Self-Care Discharge Diagnosis: influenza, asthma exacerbation, tachycardia Referrals: Physician,None [Primary Care Provider] - 1 Week Discharge Medications: New codeine-guaifenesin [Guaifenesin AC] 10-100 mg/5 mL liquid 10 ml PO Q4-6H PRN (Reason: cough) 3 Days Qty: 118 0RF prednisone 20 mg Tablet 40 mg PO DAILY Qty: 8 0RF oseltamivir [Tamiflu] 75 mg Capsule 75 mg PO Q12H Qty: 9 0RF Continued albuterol sulfate [Ventolin HFA] 90 mcg/actuation HFA aerosol inhaler 2 puff inhalation Q4-6H PRN (Reason: shortness of breath or wheezing) Qty: 8.5 0RF Discontinued prednisone 20 mg tablet 60 mg PO DAILY 5 Days Qty: 15 0RF azithromycin [Zithromax Z-Isidro] 250 mg tablet See Rx Instructions PO .COMPLEX Qty: 6 0RF Rx Instructions: take 500 mg today (day 1), then 250 mg for 4 days (days 2-5) Discharge Orders: Discharge Order (Routine); Ordered 12/10/24 Ordered By: Jabari Rosario Diet: Advance to usual diet Activity on Discharge: As tolerated Stand Alone Forms: Patient Portal Discharge page, Work/School Release Print Language: Citizen Of [place] Care Plan Goals: recovery from influenza + asthma exacerbation Health Concerns: influenza, asthma exacerbation, tachycardia Plan of Treatment: oseltamivir 75 mg twice daily for 9 doses prednisone 40 mg once daily for 4 days albuterol rescue inhaler Please establish primary care SHIMA. Return to the hospital if you experience recurrent or worsening symptoms. Assessment: See Discharge Summary. Patient Instructions: Acute Bronchitis (ED)
== END 2024-12-10 14:52 | disposition home or self-care (01) ==
LOC: HO.ED 17:20 → HO.EDOVER 20:20 → HO.IMC 21:19
PROVIDERS: Physician Assistant; Admitting Provider Hospitalist; Emergency Provider Emergency Medicine; Visit Provider Family Medicine
DX: J45.901 Unspecified asthma with (acute) exacerbation (principal); J10.1 Influenza due to other identified influenza virus with other respiratory manifestations; R06.02 Shortness of breath; R05.9 Cough, unspecified; R00.0 Tachycardia, unspecified
CPT/HCPCS: 36415; 71275; 80053; 81003; 83605; 83880; 84145; 84443; 84484; 85025; 85379; 85610; 85730; 86140; 87040; 87633; 87635; 93005; 94640; 96361; 96365; 96366; 96367; 96372; 96375; 96376; 99222; 99285; J0456; J0696; J1650; J2919; J3475; J7120; Q9967

== ENCOUNTER → 2024-12-09 08:43 | Outpatient (BNV) | payer OTHER, SELFPAY | PROVIDERS: Emergency Provider Emergency Medicine; Visit Provider Hospitalist | DX: R00.0 Tachycardia, unspecified (principal); J11.1 Influenza due to unidentified influenza virus with other respiratory manifestations; J45.901 Unspecified asthma with (acute) exacerbation | CPT/HCPCS: 99223; 99239 ==

== ENCOUNTER → 2024-12-09 10:06 | Outpatient (BNV) | payer OTHER, SELFPAY | PROVIDERS: Emergency Provider Emergency Medicine; Visit Provider Internal Medicine Cardiovascular Disease | DX: I47.10 Supraventricular tachycardia, unspecified (principal) | CPT/HCPCS: 93010 ==

== ENCOUNTER → 2024-12-09 11:16 | Outpatient (BNV) | payer OTHER, SELFPAY | PROVIDERS: Emergency Provider Emergency Medicine; Visit Provider Radiology Diagnostic Radiology | DX: R00.0 Tachycardia, unspecified (principal) | CPT/HCPCS: 71275 ==

== ENCOUNTER → 2024-12-09 17:03 | Outpatient (BNV) | CPT/HCPCS: 99222 ==

== ENCOUNTER 2025-09-22 14:01 | Emergency (ER) | payer OTHER, SELFPAY ==
--- NOTE | ~2025-09-22 | XR_ITS ---
EXAMINATION: XR CHEST CLINICAL INFORMATION: cough COMPARISON: 12/07/2024. TECHNIQUE: 2 views of the chest were obtained. FINDINGS: The cardiac, hilar, and mediastinal contours are normal. The lungs are clear bilaterally. There is no pneumothorax or pleural effusion. There is no focal osseous or soft tissue abnormality. XR/XR chest 2V IMPRESSION: Normal chest. Electronically signed by: Ottoniel Torrez MD 09/22/2025 02:39 PM [facility]
[2025-09-22 14:19] VITALS: BP 154/84; PULSE 111; RESP 18; TEMP 36.2; O2SAT 98; BMI 35.2
--- NOTE | 2025-09-22 14:20 | ED_ITS ---
HPI - URI/Sore Throat General Stated Complaint: General Medical Related Data Previous Rx's ?Medication ?Instructions ?Recorded codeine 10 mg-guaifenesin 100 mg/5 10 ml PO Q4-6H PRN cough 3 days 12/09/24 mL oral liquid (Guaifenesin AC) #118 mL albuterol sulfate 90 mcg/actuation 2 puff inhalation Q 4-6H PRN 12/10/24 aerosol inhaler (Ventolin HFA) shortness of breath or wheezing #8.5 grams oseltamivir 75 mg capsule (Tamiflu) 75 mg PO Q12H #9 c aps 12/10/24 prednisone 20 mg tablet 40 mg (2 x 20 mg) PO DAILY # 8 tabs 12/10/24 Allergies Allergy/AdvReac Type Severity Reaction Status Date / Time No Known Allergies Allergy Verified 09/22/25 14:22 [facility] Past Medical History Medical History (Updated 12/15/24 @ 00:01 by Chris Bender) Lactose intolerance Social History Social History Household Members: Spouse Housing: Apartment Alcohol intake: current Alcohol intake frequency: a few times a month Patient Tobacco Use Status: Never used Tobacco service: Yes Current occupational status: employed 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 Full HPI, ROS and PE to be performed by primary ED provider. 30 yo M presenting to the ED c/o dry cough & lightheadedness w/coughing x 3 weeks. States had COVID a few weeks ago. denies CP/SOB PE: Talking in complete sentences. Lungs CTA. Nontoxic appearing Plan: EKG, labs, viral testing, CXR Discharge Plan Discharge Prescriptions: No Action codeine-guaifenesin [Guaifenesin AC] 10-100 mg/5 mL liquid 10 ml PO Q4-6H PRN (Reason: cough) 3 Days Qty: 118 0RF prednisone 20 mg Tablet 40 mg PO DAILY Qty: 8 0RF oseltamivir [Tamiflu] 75 mg Capsule 75 mg PO Q12H Qty: 9 0RF albuterol sulfate [Ventolin HFA] 90 mcg/actuation HFA aerosol inhaler 2 puff inhalation Q4-6H PRN (Reason: shortness of breath or wheezing) Qty: 8.5 0RF Print Language: Divehi
--- NOTE | 2025-09-22 14:23 | ECG_ITS ---
Test Reason : CP Blood Pressure : */* mmHG Vent. Rate : 88 BPM Atrial Rate : 88 BPM P-R Int : 134 ms QRS Dur : 110 ms QT Int : 354 ms P-R-T Axes : 18 97 5 degrees QTcB Int : 428 ms Normal sinus rhythm Rightward axis Borderline ECG When compared with ECG of 09-Dec-2024 15:28, No significant change was found Referred By: Gala Proctor Electronically Signed By: RACH GREEN
[2025-09-22 15:17] LABS: MANUAL DIFF FLAG NO
[2025-09-22 15:19] LABS: Hematocrit 46.2 % (42.0-52.0); Hemoglobin 15.9 g/dl (14.0-18.0); Imm Gran Abs Auto 0.03 X10*3/uL (0.00-0.03); Imm Gran Pct Auto 0.3 % (0.0-0.4); Lymphocytes Absolute Auto 2.5 X10*3/uL (1.2-4.9); Mean Corpuscular HGB Conc 34.4 g/dl (31.0-36.0); Mean Corpuscular Hemoglobin 28.6 pg (27.0-33.0); Mean Corpuscular Volume 83.2 fL (80.0-98.0); NRBC Abs Auto 0.000 X10*3/uL (0.0-0.012); NRBC Pct Auto 0.0 /100WBC (0.0-0.2); Platelet Count 260 X10*3/uL (160-400); Red Blood Count 5.55 X10*6/uL (4.60-5.80); White Blood Count 9.3 X10*3/uL (4.8-10.8)
[2025-09-22 15:45] LABS: Anion Gap 13 (12-20); Blood Urea Nitrogen 14 mg/dL (9-16); Calcium 9.7 mg/dL (8.4-10.2); Carbon Dioxide 23 mmol/L (22-29); Chloride 109 mmol/L (96-108); Creatinine Clr Calc Pharmacy 98.2; Estimated Glomerular Filt Rate > 60; Potassium 3.9 mmol/L (3.3-5.1); Sodium 141 mmol/L (135-145)
[2025-09-22 15:48] LABS: Troponin-I High Sensitivity < 2.7 ng/L (<3.5-35.0)
[2025-09-22 15:57] LABS: Resp Syncy Virus RNA Qual PCR NEGATIVE (Negative); SARS COV2 PCR INHOUSE NEGATIVE (Negative)
[2025-09-22 18:00] VITALS: BP 150/78; PULSE 88; RESP 22; O2SAT 99
--- NOTE | 2025-09-22 19:12 | ED_ITS ---
HPI - General Adult General Chief complaint: Upper Respiratory Symptoms Stated complaint: General Medical Time Seen by Provider: 09/22/25 18:02 Source: patient Mode of arrival: ambulatory Limitations: no limitations History of Present Illness ED Provider: Dr. Dong [facility] narrative: 30-year-old male presented hospital today for evaluation of persistent cough for the past 3 weeks. Patient stated that he was recently diagnosed with COVID a couple of weeks ago. He was working around the house and found to have black mold. He has think this is has been trigger his coughing. Shortness of breath. 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 His commanding officer asked him to get medical clearance for it. Related Data Previous Rx's ?Medication ?Instructions ?Recorded codeine 10 mg-guaifenesin 100 mg/5 10 ml PO Q4-6H PRN cough 3 days 12/09/24 mL oral liquid (Guaifenesin AC) #118 mL albuterol sulfate 90 mcg/actuation 2 puff inhalation Q 4-6H PRN 12/10/24 aerosol inhaler (Ventolin HFA) shortness of breath or wheezing #8.5 grams oseltamivir 75 mg capsule (Tamiflu) 75 mg PO Q12H #9 c aps 12/10/24 prednisone 20 mg tablet 40 mg (2 x 20 mg) PO DAILY # 8 tabs 12/10/24 albuterol sulfate 90 mcg/actuation 1 inh inhalation QI D PRN shortness 09/22/25 aerosol inhaler (Ventolin HFA) of breath or wheezing # 8.5 grams azithromycin 250 mg tablet See Rx Instructions PO .COM PLEX #6 09/22/25 (Zithromax) tabs prednisone 50 mg tablet 50 mg PO DAILY 7 days #7 tab s 09/22/25 Allergies Allergy/AdvReac Type Severity Reaction Status Date / Time No Known Allergies Allergy Verified 09/22/25 14:22 Review of Systems 2 Review of Systems: Pertinent review of systems as mentioned in [facility]. All other system otherwise negative. 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 Physical Exam ED Exam Exam: General: Pleasant, no distress, interacting appropriately Head: Normacephalic, atraumatic ENT: oral mucosa moist, neck supple, no tracheal deviation Cardiovascular: regular rate, regular rhythm, no murmurs, rubbing, gallops Respiratory: Bilateral wheezing on exam Neurological: Awake and alert, no facial droop noted Skin: Warm and dry Psychiatric: Appropriate mood and thoughts Vital Signs: Vital Signs - 24 hr 09/22/25 14:19 09/22/25 18:00 09/22/25 19:19 Temperature 97.2 F 98.1 F Pulse Rate 111 H 88 84 Respiratory Rate 18 22 H 18 Blood Pressure 154/84 H 150/78 H 139/73 Pulse Oximetry 98 99 97 Oxygen Delivery Method Room Air Room Air Room Air 09/22/25 20:59 Temperature 98.1 F Pulse Rate 84 Respiratory Rate 18 Blood Pressure 139/73 Pulse Oximetry 97 Oxygen Delivery Method Room Air BMI result Body Mass Index 35.2 Medications Administered Discontinued Medications Generic Name Dose Route Start Last Admin Trade Name Freq PRN Reason Stop Dose Admin Albuterol Sulfate 7.5 mg/ 10 mg 09/22/25 20:06 09/22/25 20:11 Albuterol Sulfate 2.5 mg INHALE 09/22/25 20:07 10 mg ONCE ONE Administration Benzonatate 200 mg 09/22/25 19:11 09/22/25 19:42 Benzonatate 100 Mg Capsule PO 09/22/25 19:12 200 mg ONCE ONE Administration Prednisone 60 mg 09/22/25 19:06 09/22/25 19:42 Prednisone 20 Mg Tablet PO 09/22/25 19:07 60 mg ONCE ONE Administration Medical Decision Making Medical Decision Making MDM Narrative: 30-year-old male presented hospital today for evaluation of persistent coughing for the past 3 weeks. We will plan to give patient a breathing treatment here. Prednisone will be given, benzonatate will be given for his cough. We will plan to discharge patient home with prednisone course, azithromycin course, and albuterol inhaler for the patient. Duty excuse note will be provided the patient's if he needs it. We will plan to discharge patient does time he does not appear to be hypoxic or tachypneic. Pulmonology referral will be provided. Chest x-ray is clear no sign of consolidation. Differential Diagnosis Differential Diagnoses: The differential diagnosis associated with the presentation includes New onset asthma, COPD, pneumonia Lab Data MDM Lab Attestation statement: I reviewed the patient's lab results. 09/22/25 15:12 09/22/25 15:12 Labs: Lab Results 09/22/25 Range/Units 15:12 WBC 9.3 (4.8-10.8) X10*3/uL RBC 5.55 (4.60-5.80) X10*6/uL Hgb 15.9 (14.0-18.0) g/dl Hct 46.2 (42.0-52.0) % MCV 83.2 (80.0-98.0) fL MCH 28.6 (27.0-33.0) pg MCHC 34.4 (31.0-36.0) g/dl RDW 12.7 (11.0-16.0) % Plt Count 260 (160-400) X10*3/uL MPV 11.0 (9.4-12.4) fL Immature Gran % (Auto) 0.3 (0.0-0.4) % Neut % (Auto) 63.3 (45-73) % Lymph % (Auto) 26.9 (20-40) % Morton % (Auto) 7.4 (2-11) % Eos % (Auto) 1.7 (0-4) % Baso % (Auto) 0.4 (0-2) % Lymph # (Auto) 2.5 (1.2-4.9) X10*3/uL Morton # (Auto) 0.7 (0.1-1.2) X10*3/uL Eos # (Auto) 0.2 (0.0-0.4) X10*3/uL Baso # (Auto) 0.0 (0.0-0.2) X10*3/uL Abs Immat Gran (auto) 0.03 (0.00-0.03) X10*3/uL Absolute Neuts (auto) 5.9 (2.0-8.3) x10*3/uL Absolute Nucleated RBC 0.000 (0.0-0.012) X10*3/uL Nucleated RBC % (auto) 0.0 (0.0-0.2) /100WBC Sodium 141 (135-145) mmol/L Potassium 3.9 (3.3-5.1) mmol/L Chloride 109 H (96-108) mmol/L Carbon Dioxide 23 (22-29) mmol/L Anion Gap 13 (12-20) BUN 14 (9-16) mg/dL Creatinine 1.17 (0.5-1.4) mg/dL Estim Creat Clear Calc 98.2 Estimated GFR > 60 Random Glucose 104 (60-115) mg/dL Calcium 9.7 (8.4-10.2) mg/dL Troponin I High Sens < 2.7 (<3.5-35.0) ng/L Influenza Type A (PCR) NEGATIVE (Negative) Influenza Type B (PCR) NEGATIVE (Negative) RSV RNA Qual (PCR) NEGATIVE (Negative) SARS-CoV-2 RNA (RT-PCR) NEGATIVE (Negative) Independent Interpretation I performed an independent interpretation of an: Plain X-Ray Radiology Impression Discussion of test interpretation with radiology: I have reviewed the radiologist's reading. Prescription Management I considered prescription management with: Antibiotic Discharge Plan Discharge Clinical Impression: Asthma Qualifiers: Asthma severity: mild Asthma persistence: intermittent Asthma complication type: uncomplicated Qualified Code(s): J45.20 - Mild intermittent asthma, uncomplicated Patient Disposition: Home, Self-Care Instructions: Asthma (ED) Prescriptions: New prednisone 50 mg tablet 50 mg PO DAILY 7 Days Qty: 7 0RF albuterol sulfate [Ventolin HFA] 90 mcg/actuation HFA aerosol inhaler 1 inh inhalation QID PRN (Reason: shortness of breath or wheezing) Qty: 8.5 0RF azithromycin [Zithromax] 250 mg tablet See Rx Instructions .ROUTE .COMPLEX Qty: 6 0RF Rx Instructions: For 250 mg dose pack: take 500 mg today (day 1), then 250 mg for 4 days (days 2-5) No Action codeine-guaifenesin [Guaifenesin AC] 10-100 mg/5 mL liquid 10 ml PO Q4-6H PRN (Reason: cough) 3 Days Qty: 118 0RF prednisone 20 mg Tablet 40 mg PO DAILY Qty: 8 0RF oseltamivir [Tamiflu] 75 mg Capsule 75 mg PO Q12H Qty: 9 0RF albuterol sulfate [Ventolin HFA] 90 mcg/actuation HFA aerosol inhaler 2 puff inhalation Q4-6H PRN (Reason: shortness of breath or wheezing) Qty: 8.5 0RF Referrals: [facility] [Provider Group, Pulmonology] Stand Alone Forms: Work/School Release Interventions: ED Discharge Assessment Last Done: 09/22/25 20:59 Print Language: Tamazight
[2025-09-22 19:19] VITALS: BP 139/73; PULSE 84; RESP 18; TEMP 36.7; O2SAT 97
[2025-09-22] MEDS: Albuterol Sulfate 7.5 MG, Albuterol Sulfate (0.083%) 2.5 MG 10 MG INHALE (20:11)
[2025-09-22 20:59] VITALS: BP 139/73; PULSE 84; RESP 18; TEMP 36.7; O2SAT 97
--- OUTSIDE RECORDS SUMMARY | 2025-09-23 05:01 | XMS_ITS | Encounter Summary ---
Author Organization [facility] Address [address] [place] [id number] Phone Care Team Providers Care Employment Services Director Name Role Phone Pcp, Unknown Primary Care Provider Unavailabl e Encounter Details Date Type Department Care Team (Late st Contact Info) Description 10/09/2023 Procedure Pass OR Admitting Dept - Virtual Department [address] [place] [address] Social History Tobacco Use Types Packs/Day Years Used Date Smoking Tobacco: Every Day Cigarettes Smokeless Tobacco: Never Alcohol Use Standard Drinks/Week Comments Yes 2 (1 standard drink = 0.6 oz pur e alcohol) Education Answer Date Recorded Are you interested in more education? Not on bobby e 06/03/2023 Are you concerned about learning? Not on file 06/03/2023 No 06/03/2023 No 06/03/2023 Digital Access Answer Date Recorded No 06/03/2023 No 06/03/2023 Reliable internet access at home? Not on file 06/03/2023 Device with a working camera? Not on file Sex and Gender Information Value Date Recorded Sex Assigned at Not on file Legal Sex Male 10:39 AM EDT Gender Identity Not on file Sexual Orientation Not on file documented as of this encounter Plan of Treatment Not on file documented as of this encounter Visit Diagnoses Not on filedocumented in this encounter Care Teams Employment Services Director Relationship Specialty Start Date End Date Pcp, Unknown PCP - General 06/03/23 documented as of this encounter Additional Source Comments The information contained in this document represents components of the legal health record. It is not the complete legal health record.[facility]
--- OUTSIDE RECORDS SUMMARY | 2025-09-23 05:01 | XMS_ITS | Clinical Summary ---
Author Organization [facility] Address [address] [place], [place] [id number] Phone Care Team Providers Care Bilingual Social Worker Name Role Phone Unavailable Primary Care Provider Unavailabl e Immunizations Immunization Administration Dates Next Due DTP 05/03/1996,03/03/1996,01/01/1996 DTaP [...] AM EDT Pulse - - Temperature 36.1 C (97 F) 08/08/2012 12:00 AM EDT Respiratory Rate - - Oxygen Saturation - - Inhaled Oxygen Concentration - - Weight 55.3 kg (122 lb) 08/08/2012 12:00 AM EDT Height 161.3 cm (5' 3.5 ) 05/15/2012 12:00 AM ED T Body Mass Index - - Plan of Treatment Health Maintenance Due Date Last Done Comments DTaP,Tdap,and Td Vaccines (7 - Td or Tdap) 01/31/2017 01/31/2007, 07/04/2001, 03/03/1997, Additional history exists HPV Vaccines (1 - 3-dose SCDM series) 2022 Influenza Vaccines (#1) 2025 COVID-19 Vaccine (2024- season) 2025 Hepatitis B Vaccines Completed 05/03/1996, 03/03/1996, 01/01/1996 HIB Vaccines Completed 03/03/1997, 04/06, 03/03/1996, Additional history exists IPV Vaccines Completed 06/04/2001, 04/06, 03/03/1996, Additional history exists MMR Vaccines Completed 06/04/2001, 08/11/1997 Meningococcal Vaccine Aged Out 01/31/2007 No socrates catalino eligible based on patient's age to complete this topic Varicella Vaccines Completed 02/04/2008, 08/05/1998 Hepatitis A Vaccines Aged Out No long er eligible based on patient's age to complete this topic Men B Vaccine Aged Out No longer elig ible based on patient's age to complete this topic Pneumococcal Vaccine Aged Out No long er eligible based on patient's age to complete this topic
--- OUTSIDE RECORDS SUMMARY | 2025-09-23 05:01 | XMS_ITS | Clinical Summary ---
Author Organization [facility] Address [address] [place] [phone] Phone Care Team Providers Care Neurology Technician Name Role Phone Pcp, Unknown Primary Care Provider Unavailabl e Allergies No known active allergies Medications oxyCODONE 5 MG immediate release tablet Take 1 tablet (5 mg total) by mouth every 4 (four) hours as needed. Partial fill ok 20 tablet 3 Active Additional Information Patient not taking.Reported on 08/20/2024 aspirin 81 MG EC tablet Take 1 tablet (81 mg total) by mouth 2 (two) times a day for 28 days. 56 tablet 3 Active oxyCODONE 5 MG immediate release tablet Take 1 tablet (5 mg total) by mouth every 4 (four) hours as needed. Partial fill ok 20 tablet 3 Active Additional Information Patient not taking.Reported on 08/20/2024 Active Problems Problem Noted Date Diagnosed Date Status post repair of ligament of ankle 11/21/19 24 Chronic instability of ankle 06/27/2023 Social History Tobacco Use Types Packs/Day Years Used Date Smoking Tobacco: Every Day Cigarettes Smokeless Tobacco: Never Tobacco Cessation:Ready to Q uit: Not Asked; Counseling Given: Not Answered Alcohol Use Standard Drinks/Week Comments Yes 2 [...] Sign Reading Time Taken Comments Blood Pressure 130/72 10/09/2023 3:15 PM EST Pulse 83 10/09/2023 3:15 PM EST Temperature 36.9 C (98.4 F) 10/09/2023 3:15 PM EST Respiratory Rate 16 10/09/2023 3:15 PM EST Oxygen Saturation 99% 10/09/2023 3:15 PM EST Inhaled Oxygen Concentration - - Weight 93.9 kg (207 lb) 08/20/2024 8:25 AM EDT Height 165.1 cm (5' 5 ) 08/20/2024 8:25 AM EDT Body Mass Index 34.45 08/20/2024 8:25 AM EDT Plan of Treatment Health Maintenance Due Date Last Done Comments DEPRESSION SCREENING 2007 SMOKING Hx and SMOKELESS TOB ACCO SCREENING 2008 HEPATITIS C SCREENING 2013 HIV ONE-TIME SCREENING (18-6 5 YEARS) 2013 PNEUMOCOCCAL VACCINES (0-49 years) (1 of 2 - PCV) 2014 Adult Td,Tdap Booster 01/31/2017 01/31/2007 INFLUENZA VACCINE (#1) 2025 COVID-19 VACCINE (1 - 2024-2 6 season) 2025 HEPATITIS A VACCINES Aged Out No long er eligible based on patient's age to complete this topic HIB VACCINES Aged Out No longer eligi ble based on patient's age to complete this topic MENINGOCOCCAL VACCINES (ACWY) Aged Out No longer eligible based on patient's age to complete this topic MENINGOCOCCAL VACCINES (B) Aged Out N o longer eligible based on patient's age to complete this topic Medical Devices Implanted Type [employer] Device Identifier Shelf Expiration Date Model / Serial / Lot Kit Augmentation Ligament Internalbrace Fibertape Collagen Coated - [id number] Implanted:Qty: 1 on 10/09/2023 by Lamberto Denney MD at [facility] Right: Ankle [employer] AR-1688-CP / / Kit Augmentation Ligament Internalbrace Fibertape Collagen Coated - [id number] Implanted:Qty: 1 on 10/09/2023 by Lamberto Denney MD at [facility] Right: Ankle [employer] [id number] / / Insurance [facility] Member Subscriber Plan / Payer (Ef fective 2023-Present) Name:FigueroaBonny Relation to Subscriber:Employee Name:BONNY PATEL Date of :1995 Address: [address] [place] [address], [address] [address] Payer ID:Not on file Group ID:Not on file Type:Indemnity Address: [address] [place] [address] Care Teams Neurology Technician Relationship Specialty Start Date End Date Pcp, Unknown PCP - General 06/03/23 Additional Source Comments The information contained in this document represents components of the legal health record. It is not the complete legal health record.[facility]
== END 2025-09-22 21:00 | disposition home or self-care (01) ==
PROVIDERS: Physician Assistant; Emergency Provider Student in an Organized Health Care Education/Training Program
DX: J45.20 Mild intermittent asthma, uncomplicated (principal); R05.9 Cough, unspecified; R42 Dizziness and giddiness; Z03.818 Encounter for observation for suspected exposure to other biological agents ruled out
CPT/HCPCS: 36415; 71046; 80048; 84484; 85025; 87637; 93005; 99284

== ENCOUNTER → 2025-09-22 14:23 | Outpatient (BNV) | payer OTHER, SELFPAY | PROVIDERS: Visit Provider Radiology Diagnostic Radiology | DX: R05.9 Cough, unspecified (principal) | CPT/HCPCS: 71046 ==

== ENCOUNTER → 2025-09-22 14:23 | Outpatient (BNV) | payer OTHER, SELFPAY | PROVIDERS: Emergency Provider Student in an Organized Health Care Education/Training Program; Visit Provider Internal Medicine | DX: R07.9 Chest pain, unspecified (principal) | CPT/HCPCS: 93010 ==

== ENCOUNTER 2025-10-06 12:32 | Emergency (ER) | payer OTHER, SELFPAY ==
--- NOTE | ~2025-10-06 | XR_ITS ---
EXAMINATION: XR LUMBOSACRAL SPINE CLINICAL INFORMATION: Back pain COMPARISON: None available. TECHNIQUE: Three views of the lumbosacral spine. FINDINGS: 5 nonrib-bearing lumbar type vertebral bodies. Slightly increased lordotic curvature. Vertebral body alignment is maintained. No evidence of acute fracture or subluxation. Vertebral body heights are maintained. Disc spaces are maintained. No suspicious bony lesion. Bilateral SI joints are symmetric. Paraspinal soft tissues appear unremarkable. No abnormal soft tissue calcification. XR/XR lumbar spine 2-3V IMPRESSION: No radiographic evidence of acute osseous findings. Electronically signed by: Alex Reyes MD 10/06/2025 01:23 PM [facility]
[2025-10-06 12:38] VITALS: BP 115/58; PULSE 80; RESP 20; TEMP 36.3; O2SAT 97; BMI 35.1
--- NOTE | 2025-10-06 13:05 | ED.GENADULT ---
HPI - General Adult General Chief complaint: Back Pain/Injury Stated complaint: low back pain Time Seen by Provider: 10/06/25 12:47 Source: patient Mode of arrival: ambulatory Limitations: no limitations History of Present Illness ED Provider: Ye Baez HPI narrative: 30 yold male presents to the ED for lower back pain since yesterday after trying to catch an object. Patient states while reaching and trying to catch the falling object he pulled his lower back and had pain immeidatley. patient states no abdominal pain, nuasea, vomitting, flank pain, fever, chills, dysuria, or hematuria. Related Data Previous Rx's ?Medication ?Instructions ?Recorded codeine 10 mg-guaifenesin 100 mg/5 10 ml PO Q4-6H PRN cough 3 days 12/09/24 mL oral liquid (Guaifenesin AC) #118 mL albuterol sulfate 90 mcg/actuation 2 puff inhalation Q4-6H PRN 12/10/24 aerosol inhaler (Ventolin HFA) shortness of breath or wheezing #8.5 grams oseltamivir 75 mg capsule (Tamiflu) 75 mg PO Q12H #9 caps 12/10/24 prednisone 20 mg tablet 40 mg (2 x 20 mg) PO DAILY #8 tabs 12/10/24 albuterol sulfate 90 mcg/actuation 1 inh inhalation QID PRN shortness 09/22/25 aerosol inhaler (Ventolin HFA) of breath or wheezing #8.5 grams azithromycin 250 mg tablet See Rx Instructions PO .COMPLEX #6 09/22/25 (Zithromax) tabs prednisone 50 mg tablet 50 mg PO DAILY 7 days #7 tabs 09/22/25 cyclobenzaprine 10 mg tablet 10 mg PO TID PRN muscle spasm #15 10/06/25 tabs naproxen 500 mg tablet 500 mg PO BID PRN pain #14 tabs 10/06/25 Allergies Allergy/AdvReac Type Severity Reaction Status Date / Time No Known Allergies Allergy Verified 10/06/25 12:40 Review of Systems Review of Systems: low back pain Yes all other systems are reviewed and are negative [facility] Past Medical History Medical History (Updated 10/07/25 @ 00:00 by Chris Bender) Lactose intolerance Social History Social History Household Members: Spouse Housing: Apartment Alcohol intake: current Alcohol intake frequency: a few times a month Patient Tobacco Use Status: Never used Tobacco Advance Directives: No Advance Directives Information Provided: Yes Do you have a plan to hurt others: No Plan service: Yes Current occupational status: employed 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 Physical Exam ED Vital Signs: Vital Signs - 24 hr 10/06/25 12:38 Temperature 97.3 F Pulse Rate 80 Respiratory Rate 20 Blood Pressure 115/58 L Pulse Oximetry 97 Oxygen Delivery Method Room Air BMI result Body Mass Index 35.1 Const General: cooperative, healthy appearing, comfortable, no acute distress, well developed, alert, awake and Physically active Orientation/consciousness: patient oriented x3 HENMT Head: Yes normal to inspection, Yes No palpable skull fracture present, Yes normocephalic and Yes atraumatic Ears: hearing grossly normal bilaterally, external ears normal, TM's normal bilaterally, TM normal on the right, TM normal on the left, EAC's normal, mastoids normal and no periauricular adenopathy Throat: Yes posterior oropharynx normal, Yes tonsils normal and Yes uvula midline Eyes General: appearance normal, both eyes and all related structures Neck Neck: Yes normal visual inspection, Yes full ROM, Yes no lymphadenopathy, Yes no meningeal signs, Yes trachea midline, Yes supple, No anterior neck swelling and No tender Chest Chest palpation & inspection: normal inspection of the chest and normal palpation of entire chest wall Resp Effort & Inspection: normal respiratory effort and able to speak in complete sentences Cardio Jugular venous distension: no JVD Heart sounds: S1 normal heart sound present and S2 normal heart sound present GI Inspection: Yes normal to inspection Palpation (GI): Soft to palpation, not firm, nontender, no guarding and not rigid General: Yes no CVA tenderness Back/Spine/Pelvis Back: no CVA tenderness and back tenderness (lumbar spine) Skin General skin exam: no rashes or lesions noted, elasticity normal and turgor normal Neuro General: patient oriented x3, gait normal, tone normal, moves all extremities, Normal light touch and pain sensation, no meningeal signs, no focal motor deficits, CN's II-XI intact bilaterally and normal sensation to monofilament Extrem General: Yes normal to inspection, Yes full ROM and Yes capillary refill normal Psych Appearance: grossly normal, well kempt and not disheveled Medical Decision Making Medical Decision Making MDM Narrative: 30-year-old male presents to ED for low back pain after twisting back while picking up an object yesterday. X-ray ordered. Patient denies any uriinary/bowel incontinence, IV drug use, or pmh of immuno compromised diseases. 2:23pm: X-ray negative fracture. Patient will be treated as muscle strain. Muscle relaxer pain meds. Not suspecting epidural abscess, caudina equina syndrome, osteomyelititis, sepsis, or any other concerning symptoms. Patient explained the worrisome signs and inforemd to return to the ED. Differential Diagnosis Differential Diagnoses: The differential diagnosis associated with the presentation includes (Fracture dislocation) Admission/Observation Consideration of admission/observation: Escalation of care including admission/observation considered Independent Interpretation I performed an independent interpretation of an: Plain X-Ray Radiology Impression Discussion of test interpretation with radiology: I have reviewed the radiologist's reading. Independent Historian Clinical information obtained from an independent historian. History obtained from or confirmed by: Other (patient) Prescription Management I considered prescription management with: Pain Medication Discharge Plan Discharge Clinical Impression: Low back strain Patient Disposition: Home, Self-Care Instructions: Muscle Strain (ED), Low Back Strain (ED), Back Pain (ED), P.R.I.C.E. Treatment (ED), Lower Back Exercises (ED), Core Strengthening Exercises (ED) Additional Instructions: Recommend follow up with primary care provider. X-ray negative for fracture. Return to the ED for any urinary/bowel incontinence, testicular pain, dysuria, hematuria, abdominal pain, nausea, vomiting, flank pain, fever, chills, or any other concerning symptoms. Ordering Physician: Ye Baez Date of Service: 10/06/25 Procedure(s): XR lumbar spine 2-3V Accession Number(s): [id number] cc: Ye Baez; Physician,None ~ Reason for Exam: Back pain EXAMINATION: XR LUMBOSACRAL SPINE CLINICAL INFORMATION: Back pain COMPARISON: None available. TECHNIQUE: Three views of the lumbosacral spine. FINDINGS: 5 nonrib-bearing lumbar type vertebral bodies. Slightly increased lordotic curvature. Vertebral body alignment is maintained. No evidence of acute fracture or subluxation. Vertebral body heights are maintained. Disc spaces are maintained. No suspicious bony lesion. Bilateral SI joints are symmetric. Paraspinal soft tissues appear unremarkable. No abnormal soft tissue calcification. XR/XR lumbar spine 2-3V IMPRESSION: No radiographic evidence of acute osseous findings. Electronically signed by: Alex Reyes MD 10/06/2025 01:23 PM [facility] [place] Prescriptions: New naproxen 500 mg tablet 500 mg PO BID PRN (Reason: pain) Qty: 14 0RF cyclobenzaprine 10 mg tablet 10 mg PO TID PRN (Reason: muscle spasm) Qty: 15 0RF Rx Instructions: side effect is drowsiness. Do not take at work or while driving. No Action codeine-guaifenesin [Guaifenesin AC] 10-100 mg/5 mL liquid 10 ml PO Q4-6H PRN (Reason: cough) 3 Days Qty: 118 0RF prednisone 20 mg Tablet 40 mg PO DAILY Qty: 8 0RF oseltamivir [Tamiflu] 75 mg Capsule 75 mg PO Q12H Qty: 9 0RF albuterol sulfate [Ventolin HFA] 90 mcg/actuation HFA aerosol inhaler 2 puff inhalation Q4-6H PRN (Reason: shortness of breath or wheezing) Qty: 8.5 0RF prednisone 50 mg tablet 50 mg PO DAILY 7 Days Qty: 7 0RF albuterol sulfate [Ventolin HFA] 90 mcg/actuation HFA aerosol inhaler 1 inh inhalation QID PRN (Reason: shortness of breath or wheezing) Qty: 8.5 0RF azithromycin [Zithromax] 250 mg tablet See Rx Instructions .ROUTE .COMPLEX Qty: 6 0RF Rx Instructions: For 250 mg dose pack: take 500 mg today (day 1), then 250 mg for 4 days (days 2-5) Stand Alone Forms: Work/School Release Interventions: ED Discharge Assessment Last Done: 10/06/25 14:40 Discharge Date/Time: 10/06/25 14:40 Print Language: Lithuanian
[2025-10-06 14:40] VITALS: BP 115/58; PULSE 80; RESP 20; TEMP 36.3; O2SAT 97
--- OUTSIDE RECORDS SUMMARY | 2025-10-06 17:14 | XMS_ITS | Clinical Summary ---
Author Organization [facility] Address [address] [place] [id number] Phone Care Team Providers Care Jewel Stripper Name Role Phone Pcp, Unknown Primary Care [...] this topic Medical Devices Implanted Type Area Pain Management Nurse Practitioner Device Identifier Shelf Expiration Date Model / Serial / Lot Kit Augmentation Ligament Internalbrace Fibertape Collagen Coated - [id number] Implanted:Qty: 1 on 10/09/2023 by Lamberto Denney MD at [facility] Right: Ankle [employer] AR-1688-CP / / Kit Augmentation Ligament Internalbrace Fibertape Collagen Coated - [id number] Implanted:Qty: 1 on 10/09/2023 by Lamberto Denney MD at [facility] Right: Ankle [employer] AR-1688-CP / / Insurance [facility] [employer] Care Teams Jewel Stripper Relationship Specialty Start Date End Date Pcp, Unknown PCP - General 06/03/23 Additional Source Comments The information contained in this document represents components of the legal health record. It is not the complete legal health record.[facility]
--- OUTSIDE RECORDS SUMMARY | 2025-10-06 17:14 | XMS_ITS | Clinical Summary ---
Author Organization [facility] Address [address] [place], [place] [id number] Phone Care Team Providers Care Gas Engine Repairer Name Role Phone Unavailable Primary Care Provider [...]
--- OUTSIDE RECORDS SUMMARY | 2025-10-06 17:14 | XMS_ITS | Encounter Summary ---
Author Organization [facility] Address [address] [place] [phone] Phone Care Team Providers Care Research Associate Molecular Biology Name Role Phone Pcp, Unknown Primary Care Provider Unavailabl e Encounter Details Date Type Department Care Team (Late st Contact Info) Description 10/09/2023 Procedure Pass OR Admitting Dept - Virtual Department [address] [place] [address] Social History Tobacco Use Types Packs/Day Years [...] on filedocumented in this encounter Care Teams Research Associate Molecular Biology Relationship Specialty Start Date End Date Pcp, Unknown PCP - General 06/03/23 documented as of this encounter Additional Source Comments The information contained in this document represents components of the legal health record. It is not the complete legal health record.[facility]
== END 2025-10-06 14:40 | disposition home or self-care (01) ==
PROVIDERS: Emergency Provider Emergency Medicine
DX: S39.012A Strain of muscle, fascia and tendon of lower back, initial encounter (principal); X50.1XXA Overexertion from prolonged static or awkward postures, initial encounter; Y93.89 Activity, other specified; Y92.89 Other specified places as the place of occurrence of the external cause; Y99.8 Other external cause status
CPT/HCPCS: 72100; 99282; 99283

== ENCOUNTER → 2025-10-06 12:42 | Outpatient (BNV) | payer OTHER, SELFPAY | PROVIDERS: Emergency Provider Emergency Medicine; Visit Provider Radiology Diagnostic Ultrasound | DX: M54.50 Low back pain, unspecified (principal) | CPT/HCPCS: 72100 ==